=== PATIENT | female | born 1970 | race Caucasian/White ===

== ENCOUNTER 2023-09-30 06:44 | Emergency (ER) | payer OTHER, SELFPAY ==
[2023-09-30 06:49] VITALS: BP 187/86
[2023-09-30 07:09] VITALS: BMI 41.1
[2023-09-30] MEDS: DUONEB 3 ML INH (07:30)
--- NOTE | 2023-09-30 07:30 | ED.GENMED ---
History of Present Illness
General
Chief Complaint: Breathing Problem
Source: patient
Exam Limitations: none
Time Seen by Provider: 09/30/23 07:03
Nursing documentation reviewed up to this point in time: agreed with
Travel History
Have you had any contact with someone who has COVID-19?: No
Do you have any symptoms of coronavirus? Fever > 100 degrees, chills, cough, shortness of breath, sore throat, loss of taste or smell, muscle aches, or headache?: No
History of Present Illness
History of Present Illness:
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 She claims that she has had significant
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 She has had worsening dyspnea on exertion. Denies current chest pain does have ongoing shortness of breath and tightness to the right side. Denies nausea vomiting fevers.
Past History
Past History
ED Past Medical History: NIDDM
ED Past Surgical History: Negative Cardiac
Social History
Tobacco: Non-smoker
Alcohol: None
Drug: None
Personal:
Living: with family
Employment: Employed
Family History
Family History: Other (Noncontributory)
Review of Systems
Review of Systems
Allergies reviewed?: Yes
All Other Systems: ROS reviewed and negative except as documented in HPI and ROS
Phy Exam
Physical Exam
Physical Exam:
GENERAL: Alert , in no apparent distress
EYE: pupils equal and reactive
NECK: Supple, no significant adenopathy.
ENT: o/p clr, mmm.
CARDIAC: Regular rate and rhythm .
LUNGS: Clear breath sounds bilaterally, no acute respiratory distress, no wheezes/rales/rhonchi
ABDOMEN: Soft, without focal tenderness, no r/g, no cvat
NEUROLOGICAL: Alert and oriented, no focal neuro deficits
SKIN: Warm and dry, skin intact.
MUSCULOSKELETAL: No edema, well perfused.
PSYCH: Normal and appropriate interaction.
Scores
Heart Failure Risk
Heart Failure Risk Score: Not Applicable
Course
Orders/Labs/Results
Orders:
Orders
09/30/23 07:14
Ipratropium/Albuterol Sulfate [Duoneb] 3 ml INH R NOW STA
09/30/23 07:15
Electrocardiogram (*1) Stat
Reason for Study: Other
Other Reason for Exam: pneumonia
CT Chest Pe Study Urgent
Comment:
Reason For Exam: R CP, hxChurg maria e, hx left lung infarct
EKG- Treatment ONCE
09/30/23 07:26
Complete Blood Count/With Diff Urgent
Comprehensive Metabolic Panel Urgent
NT-proBNP Urgent
Troponin I Urgent
09/30/23 10:16
Dexamethasone Sod Phosphate [Decadron] 10 mg IV NOW STA
Abnormal Lab Results
09/30/23
07:26
Absolute Lymphs (auto) 1.1 L 10^3/uL
(1.2-3.4)
Lymphocytes % 17.7 L %
(20.5-51.1)
Glucose 238 H mg/dl
(70-99)
AST 39 H U/L
(14-36)
ALT 61 H U/L
(0-35)
Total Protein 8.3 H g/dl
(6.3-8.2)
09/30/23 07:26
09/30/23 07:26
Vital Signs
Initial and Last Documented VS:
Initial Vital Signs
Temp Pulse Resp BP Pulse Ox
98.2 F 86 20 187/86 96
09/30/23 06:49 09/30/23 06:49 09/30/23 06:49 09/30/23 06:49 09/30/23 06:49
Last Documented Vital Signs
Temp Pulse Resp BP Pulse Ox
98.2 F 86 20 187/86 96
09/30/23 06:49 09/30/23 06:49 09/30/23 06:49 09/30/23 06:49 09/30/23 06:49
MDM/Problems Addressed
MDM/Problems Addressed:
53-year-old female presenting to the emergency today with concerns of right-sided chest tightness worsening over the past 2 or so. [place] very short of breath last night. 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
pulmonary infarcts and decreased left lung capacity. She follows with [facility]. Upon arrival here vital signs are normal other than the elevated blood pressure. O2 sats in the high 90s. Patient is not visibly dyspneic speaking in full
sentences. Lungs are clear on exam. Due to her condition that causes vascular inflammation and potential infarcts plan to do angiogram for further assessment.
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 Likely explaining patient's symptoms. Case was discussed with patient's primary lung team at [facility]. They are recommending ongoing steroids until follow-up on Tuesday which is 3 days
from today.
*Critical Care Note
Total Time (30-74mins, 75-104mins- exclusive of procedures): Not Applicable
ED Attending Note
-
Portions of this chart may have been created with voice recognition software.� Occasional wrong word or��sound alike� substitutions may have occurred due to the inherent limitations of voice recognition software.
Discharge Plan
Departure
Patient Disposition: Home (Routine Discharge)
Date of Disposition: 09/30/23
Time of Disposition: 13:06
Patient with high blood pressure during this ER visit?: No
Condition: Good
Covid-19: Not Applicable
Discharge Problem:
Eosinophilic granuloma of lung
Instructions: Shortness of Breath (Dyspnea) (DC)
Prescriptions:
New
prednisone 20 mg tablet
40 mg PO DAILY 4 Days Qty: 8 0RF
No Action
fexofenadine [Leena] 180 mg Tablet
180 mg PO QPM
albuterol sulfate 90 mcg/actuation Hfa Aerosol Inhaler
2 puff INHALATION R Q4HPRN PRN (Reason: sob)
metformin 500 mg Tablet Extended Release 24 Hr
500 mg PO QPM
carboxymethylcellulose sodium [Refresh] 1 % Drops, Liquid Gel
2 drp BOTH EYES BID PRN (Reason: dry eyes)
cholecalciferol (vitamin D3) 50 mcg (2,000 unit) Tablet
50 mcg PO QPM
Taltz Autoinjector 80 mg/mL Auto-Injector
80 mg SC Q3W
ibuprofen-acetaminophen [Advil Dual Action] 125-250 mg Tablet
2 tab PO BIDPRN PRN (Reason: mild pain)
Referrals:
Pasquale Moraes, [Family Provider] -
Activity Restrictions/Additional Instructions:
You came to the emergency department today with concerns of shortness of breath and ongoing symptoms. Here you were found to have some findings consistent with your chronic condition. Please take prednisone 40 mg once daily for the next 4 days and
follow-up closely with your pulmonary doctor.
Interventions
Interventions:
*Risk Screen - Suicide Last Done: 09/30/23 06:49
*General Assessment Last Done: 09/30/23 07:13
*Neglect/Abuse Screening Last Done: 09/30/23 06:49
ED- Fall Risk Assessment Last Done: 09/30/23 07:13
*ED COVID-19 Vaccine History Last Done: 09/30/23 06:49
ED- Cardiac Assessment Last Done: 09/30/23 07:13
ED- Pulmonary Assessment Last Done: 09/30/23 07:13
Discharge Date and Time
Print Language: ARABIC
[2023-09-30 07:36] LABS: % Basophils 0.7 % (0-2); % Eosinophils 3.6 % (0-6); % Immature Granulocytes 0.5 % (0-0.5); % Lymphocytes 17.7 % (20.5-51.1); % Monocytes 5.4 % (1.7-9.3); % Neutrophils 72.1 % (42.2-75.2); Absolute Eosinophils 0.2 10^3/uL (0-0.7); Absolute Lymphocytes 1.1 10^3/uL (1.2-3.4); Absolute Monocytes 0.3 10^3/uL (0.1-0.6); Absolute Neutrophils 4.4 10^3/uL (1.4-6.5); Hematocrit 37.4 % (37.0-47.0); Hemoglobin 13.1 g/dL (12.0-16.0); Mean Corpuscular Hgb 30.5 pg (27.0-31.0); Mean Platelet Volume 9.4 fL (7.4-10.4); Nucleated Red Blood Cells % 0 %; Platelet Count 224 10^3/uL (130-400); Red Cell Dist. Width 13.3 % (11.5-14.5); White Blood Cell Count 6.2 10^3/uL (4.8-10.8)
[2023-09-30 07:54] LABS: ALT (SGPT) 61 U/L (0-35); AST (SGOT) 39 U/L (14-36); Albumin 4.8 g/dl (3.5-5.0); Alkaline Phosphatase 93 U/L (38-126); Blood Urea Nitrogen 13 mg/dl (7-17); Calcium 9.8 mg/dl (8.4-10.2); Carbon Dioxide 27 mmol/L (22-30); Chloride 103 mmol/L (98-107); Estimated Creatinine Clearance 120 ml/min; Glucose 238 mg/dl (70-99); Potassium 4.4 mmol/L (3.5-5.1); Sodium 137 mmol/L (135-145); Total Bilirubin 0.7 mg/dl (0.2-1.3); eGFR > 60.00
[2023-09-30 07:55] LABS: Total Protein 8.3 g/dl (6.3-8.2)
[2023-09-30 08:04] LABS: NT-proBNP < 20.0 pg/ml; Troponin I < 0.012 ng/ml
[2023-09-30] MEDS: DECADRON 10 MG IV (10:45)
[2023-09-30 14:19] VITALS: BP 136/74
== END 2023-09-30 14:30 | disposition home or self-care (01) ==
LOC: EMR 06:44
PROVIDERS: Physician Assistant; EMERGENCY PHYSICIAN Emergency Medicine; FAMILY PHYSICIAN Family Medicine
DX: J84.10 Pulmonary fibrosis, unspecified (principal); M30.1 Polyarteritis with lung involvement [Churg-Strauss]; Z86.711 Personal history of pulmonary embolism
CPT/HCPCS: 99285; 96374; 94640; 71275; 80053; 83880; 84484; 85025; Q9967

== ENCOUNTER → 2023-10-31 15:54 | Outpatient (REF) | payer OTHER, SELFPAY | LOC: RAD 15:54 | PROVIDERS: ATTENDING PHYSICIAN Nurse Practitioner Adult Health; FAMILY PHYSICIAN Family Medicine; REFERRING PHYSICIAN Emergency Medicine | DX: J45.909 Unspecified asthma, uncomplicated (principal); J84.89 Other specified interstitial pulmonary diseases | CPT/HCPCS: 71250 ==

== ENCOUNTER → 2023-12-30 08:35 | Outpatient (REF) | payer OTHER, SELFPAY | LOC: HWRAD 08:35 | PROVIDERS: ATTENDING PHYSICIAN Internal Medicine Pulmonary Disease; FAMILY PHYSICIAN Family Medicine | DX: R91.1 Solitary pulmonary nodule (principal) | CPT/HCPCS: 71250 ==

== ENCOUNTER → 2024-01-17 13:11 | Outpatient (REF) | payer OTHER, SELFPAY | LOC: HWRAD 13:11 | PROVIDERS: ATTENDING PHYSICIAN Nurse Practitioner Adult Health | DX: J45.909 Unspecified asthma, uncomplicated (principal); J32.9 Chronic sinusitis, unspecified | CPT/HCPCS: 77080 ==

== ENCOUNTER 2024-01-17 18:08 | Emergency (ER) | payer OTHER, SELFPAY ==
[2024-01-17 18:12] VITALS: BP 191/121
[2024-01-17 19:20] VITALS: BP 198/74
[2024-01-17 19:23] VITALS: BMI 40.0
--- NOTE | 2024-01-17 19:36 | ED.GENMED ---
History of Present Illness
General
Chief Complaint: Heart Rate Problem
Time Seen by Provider: 01/17/24 19:34
History of Present Illness
History of Present Illness:
HPI: Patient presents with increasing palpitations. She describes her heart as having an extra beat and then pausing. She has a history of Churg-Maria E and had been admitted remission for about 10 years. She is noted [facility]. She has no
significant shortness of breath. She called her doctor's [facility] who told her to come in here for further evaluation. Patient has been taking Nucala.
EXAM:
GENERAL: Well appearing in no distress
HEENT: Moist oral mucosa
CARDIOVASCULAR: No murmurs, normal heart rate, regular rhythm, No chest wall tenderness
PULMONARY: No respiratory distress, breath sounds are clear and equal
ABDOMEN: Soft with no peritoneal signs, no tenderness
NEUROLOGIC: Excellent strength all extremities, no coordination deficits
PSYCHIATRIC: Appropriate mental status, normal insight and judgement
EXTREMITIES: Nontender, no edema, moves all extremities equally
SKIN: No rash, no lesions
TIME OF INITIAL ENCOUNTER: 7:40 PM
NUMBER AND COMPLEXITY OF PROBLEMS ADDRESSED AT THE ENCOUNTER
� Chronic conditions affecting care: She has history of Churg-Maria E, prediabetes, iron deficiency anemia
� Acute Exacerbation and/or Progression of Chronic Illness: This is an acute problem
� Differential Diagnosis includes: Exacerbation/progression of Churg-Maria E, electrolyte abnormality, dysrhythmia, ectopy
AMOUNT AND/OR COMPLEXITY OF DATA TO BE REVIEWED AND ANALYZED
� I performed an independent evaluation of and my interpretation is:
EKG: Sinus 106, normal axis
CT:
X-rays:
Laboratory Studies: CBC normal, electrolytes unremarkable however the glucose is 329, TSH is normal
Other:
� Review of other/old records: Patient's blood sugar in September was 238
� Clinical information was obtained by an independent historian: I spoke to at bedside
� Prescriptions/Medications Considered but not given: Given the symptomatic PACs/PVCs considered beta-lacy however given the patient's long history we will hold off on beta-lacy
� Further testing considered but not performed:
RISK OF COMPLICATIONS AND/OR MORBIDITY OR MORTALITY OF PATIENT MANAGEMENT
� Social determinants of health affecting care: Lives at home
� Discussion with other providers:
� Escalation of care including admission/observation vs risk of discharge considered: PVCs and PACs were occasionally noted on cardiac monitoring occurring once every 30 to 60 seconds or so. She does sense these. No clear
contraindication for beta-lacy. Will start low-dose beta-lacy. I informed the patient of the worsening glucose levels. She is only taking 500 mg of metformin�I encouraged her to increase this dosing and to follow-up PMD and with [facility].
Past History
Past History
ED Past Medical History: NIDDM
ED Past Surgical History: Negative Cardiac
Social History
Tobacco: Non-smoker
Alcohol: None
Drug: None
Personal:
Living: with family
Employment: Employed
Family History
Family History: Other (Noncontributory)
Phy Exam
Physical Exam
Physical Exam:
See HPI
Course
Orders/Labs/Results
Orders:
Orders
01/17/24 18:15
Electrocardiogram (*1) Urgent
Reason for Study: Palpitations
EKG- Treatment ONCE
01/17/24 19:34
CMP [Comprehensive Metabolic Panel] Urgent
Complete Blood Count/With Diff Urgent
TSH Reflex To Free T4 Urgent
Comment: ADD ON
01/17/24 19:36
Add On- LAB Urgent
Tests Added?: tsh reflex fT4
Abnormal Lab Results
01/17/24
19:34
Abs Immat Gran (auto) 0.1 H 10^3/uL
(0-0.05)
Immature Gran % 0.7 H %
(0-0.5)
Sodium 134 L mmol/L
(135-145)
Chloride 97 L mmol/L
(98-107)
Glucose 329 H mg/dl
(70-99)
AST 86 H U/L
(14-36)
ALT 137 H U/L
(0-35)
01/17/24 19:34
01/17/24 19:34
Vital Signs
Initial and Last Documented VS:
Initial Vital Signs
Temp Pulse Resp BP Pulse Ox
98.6 F 109 18 191/121 97
01/17/24 18:12 01/17/24 18:12 01/17/24 18:12 01/17/24 18:12 01/17/24 18:12
Last Documented Vital Signs
Temp Pulse Resp BP Pulse Ox
98.6 F 95 22 198/74 96
01/17/24 18:12 01/17/24 19:30 01/17/24 19:30 01/17/24 19:20 01/17/24 19:30
*Critical Care Note
Total Time (30-74mins, 75-104mins- exclusive of procedures): Not Applicable
ED Attending Note
-
Portions of this chart may have been created with voice recognition software.� Occasional wrong word or��sound alike� substitutions may have occurred due to the inherent limitations of voice recognition software.
Discharge Plan
Departure
Prescriptions:
No Action
fexofenadine [Leena] 180 mg Tablet
180 mg PO QPM
albuterol sulfate 90 mcg/actuation Hfa Aerosol Inhaler
2 puff INHALATION R Q4HPRN PRN (Reason: sob)
metformin 500 mg Tablet Extended Release 24 Hr
500 mg PO QPM
carboxymethylcellulose sodium [Refresh] 1 % Drops, Liquid Gel
2 drp BOTH EYES BID PRN (Reason: dry eyes)
cholecalciferol (vitamin D3) 50 mcg (2,000 unit) Tablet
50 mcg PO QPM
Taltz Autoinjector 80 mg/mL Auto-Injector
80 mg SC Q3W
ibuprofen-acetaminophen [Advil Dual Action] 125-250 mg Tablet
2 tab PO BIDPRN PRN (Reason: mild pain)
prednisone 20 mg tablet
40 mg PO DAILY 4 Days Qty: 8 0RF
Referrals:
Liban Gan CRNP [Family Provider] -
Interventions
Interventions:
*Risk Screen - Suicide Last Done: 01/17/24 18:12
*General Assessment Last Done: 01/17/24 18:12
*Neglect/Abuse Screening Last Done: 01/17/24 18:12
ED- Fall Risk Assessment Last Done: 01/17/24 19:23
ED- Cardiac Assessment Last Done: 01/17/24 19:23
ED- Pulmonary Assessment Last Done: 01/17/24 19:23
Discharge Date and Time
Print Language: TELUGU
[2024-01-17 19:45] LABS: % Basophils 0.5 % (0-2); % Eosinophils 0.8 % (0-6); % Immature Granulocytes 0.7 % (0-0.5); % Lymphocytes 24.6 % (20.5-51.1); % Monocytes 6.2 % (1.7-9.3); % Neutrophils 67.2 % (42.2-75.2); Absolute Eosinophils 0.1 10^3/uL (0-0.7); Absolute Immature Granulocytes 0.1 10^3/uL (0-0.05); Absolute Lymphocytes 2.1 10^3/uL (1.2-3.4); Absolute Monocytes 0.5 10^3/uL (0.1-0.6); Absolute Neutrophils 5.7 10^3/uL (1.4-6.5); Hematocrit 40.7 % (37.0-47.0); Hemoglobin 13.9 g/dL (12.0-16.0); Mean Corp Hgb Conc. 34.2 g/dL (33.0-37.0); Mean Corpuscular Hgb 30.8 pg (27.0-31.0); Mean Platelet Volume 10.1 fL (7.4-10.4); Nucleated Red Blood Cells % 0 %; Platelet Count 234 10^3/uL (130-400); Red Blood Cell Count 4.52 10^6/uL (4.20-5.40); Red Cell Dist. Width 13.5 % (11.5-14.5); White Blood Cell Count 8.5 10^3/uL (4.8-10.8)
[2024-01-17 20:00] VITALS: BP 185/92
[2024-01-17 20:12] LABS: ALT (SGPT) 137 U/L (0-35); AST (SGOT) 86 U/L (14-36); Albumin 4.4 g/dl (3.5-5.0); Alkaline Phosphatase 114 U/L (38-126); Blood Urea Nitrogen 14 mg/dl (7-17); Calcium 9.9 mg/dl (8.4-10.2); Carbon Dioxide 28 mmol/L (22-30); Chloride 97 mmol/L (98-107); Estimated Creatinine Clearance 101 ml/min; Glucose 329 mg/dl (70-99); Potassium 3.8 mmol/L (3.5-5.1); Sodium 134 mmol/L (135-145); Total Bilirubin 0.9 mg/dl (0.2-1.3); Total Protein 7.1 g/dl (6.3-8.2); eGFR > 60.00
[2024-01-17 20:43] LABS: TSH Reflex To Free T4 1.45 uIU/ml (0.47-4.68)
--- NOTE | 2024-01-17 20:49 | EDRN ---
Went over blood work with patient and , resting comfortably at this time.
[2024-01-17 21:00] VITALS: BP 163/73
== END 2024-01-17 22:05 | disposition home or self-care (01) ==
LOC: EMR 18:08
PROVIDERS: Emergency Medicine; EMERGENCY PHYSICIAN Emergency Medicine; FAMILY PHYSICIAN Nurse Practitioner Adult Health; REFERRING PHYSICIAN Internal Medicine Pulmonary Disease
DX: R00.2 Palpitations (principal); E11.9 Type 2 diabetes mellitus without complications
CPT/HCPCS: 99284; 80053; 84443; 85025; 93005

== ENCOUNTER → 2024-03-28 16:02 | Outpatient (REF) | payer OTHER, SELFPAY | LOC: HWRAD 16:02 | PROVIDERS: ATTENDING PHYSICIAN Nurse Practitioner Adult Health; FAMILY PHYSICIAN Physician Assistant Medical | DX: J45.901 Unspecified asthma with (acute) exacerbation (principal); J45.909 Unspecified asthma, uncomplicated; J32.9 Chronic sinusitis, unspecified | CPT/HCPCS: 71250 ==

== ENCOUNTER → 2024-05-07 13:20 | Outpatient (REF) | payer OTHER, SELFPAY | LOC: RAD 13:20 | PROVIDERS: ATTENDING PHYSICIAN Nurse Practitioner Adult Health; FAMILY PHYSICIAN Physician Assistant Medical | DX: J45.901 Unspecified asthma with (acute) exacerbation (principal); B47.9 Mycetoma, unspecified | CPT/HCPCS: 71250 ==

== ENCOUNTER 2024-08-03 11:02 | Emergency (ER) | payer OTHER, SELFPAY ==
[2024-08-03 11:07] VITALS: BP 159/102
[2024-08-03 11:35] LABS: % Basophils 0.5 % (0-2); % Eosinophils 0.2 % (0-6); % Immature Granulocytes 0.6 % (0-0.5); % Lymphocytes 14.6 % (20.5-51.1); % Monocytes 6.7 % (1.7-9.3); % Neutrophils 77.4 % (42.2-75.2); Absolute Basophils 0.1 10^3/uL (0-0.2); Absolute Immature Granulocytes 0.1 10^3/uL (0-0.05); Absolute Lymphocytes 1.9 10^3/uL (1.2-3.4); Absolute Monocytes 0.9 10^3/uL (0.1-0.6); Absolute Neutrophils 10.2 10^3/uL (1.4-6.5); Hematocrit 40.3 % (37.0-47.0); Hemoglobin 13.3 g/dL (12.0-16.0); Mean Corpuscular Hgb 29.6 pg (27.0-31.0); Mean Corpuscular Volume 89.8 fL (81.0-99.0); Nucleated Red Blood Cells % 0 %; Platelet Count 342 10^3/uL (130-400); Red Blood Cell Count 4.49 10^6/uL (4.20-5.40); Red Cell Dist. Width 12.4 % (11.5-14.5); White Blood Cell Count 13.1 10^3/uL (4.8-10.8)
[2024-08-03 12:19] LABS: ALT (SGPT) 21 U/L (0-35); AST (SGOT) 36 U/L (14-36); Albumin 4.8 g/dl (3.5-5.0); Alkaline Phosphatase 135 U/L (38-126); Blood Urea Nitrogen 6 mg/dl (7-17); Calcium 9.8 mg/dl (8.4-10.2); Carbon Dioxide 27 mmol/L (22-30); Chloride 98 mmol/L (98-107); Glucose 140 mg/dl (70-99); Potassium 4.4 mmol/L (3.5-5.1); Sodium 138 mmol/L (135-145); Total Protein 8.1 g/dl (6.3-8.2); eGFR > 60.00
[2024-08-03 13:20] VITALS: BP 127/73
--- NOTE | 2024-08-03 15:30 | ED.GENMED ---
History of Present Illness
<Katelin Beach NP - Last Filed: 08/03/24 23:24>
General
Chief Complaint: Breathing Problem
Source: patient
Exam Limitations: none
Time Seen by Provider: 08/03/24 15:03
Nursing documentation reviewed up to this point in time: agreed with
History of Present Illness
History of Present Illness:
Patient to ED with complaint of right sided chest pain, squeezing and burning sensation. She reports a history of churg daniella syndrome. SHe has a known right lung nodue and follows with dr. Bass at [facility]. States she had a lung biopsy
(benign) and CT this past fall. Currently she is being treated for a suspected pulmonary fungal infection. SHe reports worsening cough x 4 weeks. SHe was seen by PCP last week for this. SHe states she was recently placed on amoxicillin and cipro
for UTI and PCP wanted to hold off on futher antibiotics. SHe called PCP last night to report worsening cough. SHe was pescribed a zpack, she has had 1 dose. COugh is dry. No fever/chills. States today while at work she had sudden onset of new
sypmptoms: right sided chest pain that feels also like squeezing and burning. Hurts to breathe deep. Brought to ED by spouse for eval.
Past History
<Katelin Beach NP - Last Filed: 08/03/24 23:24>
Past History
ED Past Medical History: NIDDM and Other (Churg daniella syndrome, Psoriactic arthritis, Psoriasis, elevated HgA1c due to shelter steroid use. )
ED Past Surgical History: Negative Cardiac
Social History
Tobacco: Non-smoker
Alcohol: None
Drug: None
Personal:
Living: with family
Employment: Employed
Family History
Family History: Other (Noncontributory)
Review of Systems
<Katelin Beach NP - Last Filed: 02/21/25 23:24>
Review of Systems
Allergies reviewed?: Yes
All Other Systems: ROS reviewed and negative except as documented in HPI and ROS
Constitutional: Reports weight loss (22lbs x 5 weeks)
EENT: Reports no symptoms
Respiratory: Reports cough
Cardiac: Reports chest pain (Right sided chest pain, burning, squeezing.)
ABD/GI: Reports diarrhea (10 days)
: Reports no symptoms
Musculoskeletal: Reports no symptoms
Skin: Reports no symptoms
Neurological: Reports no symptoms
Psychiatric: Reports no symptoms
Phy Exam
<Katelin Beach NP - Last Filed: 08/03/24 23:24>
General Physical Exam
General Presentation: mild distress
General age: appears stated age
General Skin: warm and dry
General Habitus: normal
General Mental: alert
Cardiovascular Exam
Cardiovascular Exam: regular rate/rhythm and no edema
Pulmonary Exam
Pulmonary Exam: lungs clear and no respiratory distress
Gastrointestinal Exam
Gastrointestinal Exam: normal bowel sounds, non tender, soft and no organomegaly
Musculoskeletal Exam
Musculoskeletal Exam: full ROM and neuro vasc intact
Skin Exam
Skin Exam: normal color and warm/dry
Psychiatric Exam
Psychiatric Exam: normal mood/affect
Scores
<Katelin Beach [employer] - Last Filed: 08/03/24 23:24>
Heart Failure Risk
Heart Failure Risk Score: Not Applicable
Course
<Katelin Beach NP - Last Filed: 08/03/24 23:24>
Orders/Labs/Results
Orders:
Orders
08/03/24 11:12
Electrocardiogram (*1) Urgent
Reason for Study: Shortness of Breath
EKG- Treatment ONCE
CXR2 [CR Chest - 2 Views ] Urgent
Comment:
Reason For Exam: sob
08/03/24 11:23
Complete Blood Count/With Diff Urgent
Comprehensive Metabolic Panel Urgent
08/03/24 15:30
CT Chest PE Study Urgent
Comment:
Reason For Exam: right chest pain, dyspnea
08/03/24 17:05
Troponin I Urgent
Abnormal Lab Results
08/03/24
11:23
WBC 13.1 H 10^3/uL
(4.8-10.8)
Abs Immat Gran (auto) 0.1 H 10^3/uL
(0-0.05)
Absolute Neuts (auto) 10.2 H 10^3/uL
(1.4-6.5)
Absolute Monos (auto) 0.9 H 10^3/uL
(0.1-0.6)
Immature Gran % 0.6 H %
(0-0.5)
Neutrophils % 77.4 H %
(42.2-75.2)
Lymphocytes % 14.6 L %
(20.5-51.1)
BUN 6 L mg/dl
(7-17)
Glucose 140 H mg/dl
(70-99)
Alkaline Phosphatase 135 H U/L
(38-126)
08/03/24 11:23
08/03/24 11:23
Vital Signs
Initial and Last Documented VS:
Initial Vital Signs
Temp Pulse Resp BP Pulse Ox
98.7 F 102 16 159/102 98
08/03/24 11:07 08/03/24 11:07 08/03/24 11:07 08/03/24 11:07 08/03/24 11:07
Last Documented Vital Signs
Temp Pulse Resp BP Pulse Ox
98.7 F 109 16 158/88 93
08/03/24 11:07 08/03/24 18:12 08/03/24 18:12 08/03/24 18:12 08/03/24 18:12
<Emile Bentley MD - Last Filed: 08/03/24 16:47>
Orders/Labs/Results
Orders:
Orders
08/03/24 11:12
Electrocardiogram (*1) Urgent
Reason for Study: Shortness of Breath
EKG- Treatment ONCE
CXR2 [CR Chest - 2 Views ] Urgent
Comment:
Reason For Exam: sob
08/03/24 11:23
Complete Blood Count/With Diff Urgent
Comprehensive Metabolic Panel Urgent
08/03/24 15:30
CT Chest PE Study Urgent
Comment:
Reason For Exam: right chest pain, dyspnea
08/03/24 17:05
Troponin I Urgent
Abnormal Lab Results
08/03/24
11:23
WBC 13.1 H 10^3/uL
(4.8-10.8)
Abs Immat Gran (auto) 0.1 H 10^3/uL
(0-0.05)
Absolute Neuts (auto) 10.2 H 10^3/uL
(1.4-6.5)
Absolute Monos (auto) 0.9 H 10^3/uL
(0.1-0.6)
Immature Gran % 0.6 H %
(0-0.5)
Neutrophils % 77.4 H %
(42.2-75.2)
Lymphocytes % 14.6 L %
(20.5-51.1)
BUN 6 L mg/dl
(7-17)
Glucose 140 H mg/dl
(70-99)
Alkaline Phosphatase 135 H U/L
(38-126)
08/03/24 11:23
08/03/24 11:23
Vital Signs
Initial and Last Documented VS:
Initial Vital Signs
Temp Pulse Resp BP Pulse Ox
98.7 F 102 16 159/102 98
08/03/24 11:07 08/03/24 11:07 08/03/24 11:07 08/03/24 11:07 08/03/24 11:07
Last Documented Vital Signs
Temp Pulse Resp BP Pulse Ox
98.7 F 109 16 158/88 93
08/03/24 11:07 08/03/24 18:12 08/03/24 18:12 08/03/24 18:12 08/03/24 18:12
<Katelin Beach NP - Last Filed: 08/03/24 23:24>
*Critical Care Note
Total Time (30-74mins, 75-104mins- exclusive of procedures): Not Applicable
<Katelin Beach NP - Last Filed: 08/03/24 23:24>
Update Note
Update Note:
CXR reveals increase in size of right lung mass, high level suspicion for pulmonary malignancy. Discussesd findings with her. WIll CT. PUlse ox 98% RA, no respiratory distress noted.
NO evidence of PE. COnfirmation of enlargement of right lung mass - 'airspace consolidation due to Churg Maria E syndrome vs lung CA. Discussed this finding with her. SHe remains awake and alert, in no distress. PUlse ox 98% RA, no respiratory
distress. Admission vs discharge discussed wtih her and she is comfortable tiwth discharge. Will plan on discharge home and she will follow up with her pocket assembler in AM. SHe was given a copy on disc of her chest XRay and CT. SHe was ginve
instructions on s/s to return to eD and she is agreeable to plan. Case discussed iwmonica bentley who also evaluated this patient.
ED Attending Note
<Katelin Beach [employer] - Last Filed: 08/03/24 23:24>
-
Portions of this chart may have been created with voice recognition software.� Occasional wrong word or��sound alike� substitutions may have occurred due to the inherent limitations of voice recognition software.
<Emile Bentley MD - Last Filed: 08/03/24 16:47>
ED Attending Note
Patient seen and examined by attending physician: Yes
ED Attending Note:
I have seen and evaluated the patient with a [id number] encounter. I have spoken to the advance practicer provider and involved in the medical history, the physical exam, medical decision making.
Evaluation and management service: agree unless noted differently below.
Results interpretation: agree unless noted differently below.
Focused HPI: 54-year-old female with a past medical history of Churg-Maria E syndrome, asthma, IBS, diabetes, psoriasis who presents to the emergency department for evaluation of chest pain. Patient reports that symptoms are chronic related to her
Churg-Maria E but became significantly worse today. She reports that while she was at work prior to arrival she felt 'pain inside my lung' on the right. She says she has associated shortness of breath and 'rattling' when she breathes. She says
that she has had issues with her right lung before she says that she was diagnosed with a granuloma and has been on antifungals for the past few months is scheduled for follow-up in September.
Physical exam: Awake alert no distress. Breath sounds somewhat diminished on the right. Hypertensive, tachycardic, normal pulse ox, normal respiratory rate. No cardiac rubs gallops or murmurs appreciated.
Medical Decision Makin-year-old female presents for evaluation of right-sided chest pain and shortness of breath in the setting of known Churg-Maria E disease and prior diagnosis of granuloma on the right. Vitals and exam as above. She has a
leukocytosis to 13.1. CMP no clinically significant abnormalities. Chest x-ray showed 5 cm pulmonary mass increased in size compared to prior. There was concern that this could be a pulmonary malignancy. Given abrupt change in pain however we
will check CT chest to rule out PE and to better evaluate this finding.
Discharge Plan
Departure
Patient Disposition: Home (Routine Discharge)
Date of Disposition: 08/03/24
Time of Disposition: 18:12
Patient with high blood pressure during this ER visit?: No
Condition: Good
Covid-19: Not Applicable
Discharge Problem:
Chest pain, Dyspnea
Instructions: Shortness of Breath (Dyspnea) (DC), Chest Pain (DC)
Prescriptions:
No Action
fexofenadine [Leena] 180 mg Tablet
180 mg PO QPM
albuterol sulfate 90 mcg/actuation Hfa Aerosol Inhaler
2 puff INHALATION R Q4HPRN PRN (Reason: sob)
metformin 500 mg Tablet Extended Release 24 Hr
500 mg PO QPM
carboxymethylcellulose sodium [Refresh] 1 % Drops, Liquid Gel
2 drp BOTH EYES BID PRN (Reason: dry eyes)
cholecalciferol (vitamin D3) 50 mcg (2,000 unit) Tablet
50 mcg PO QPM
Taltz Autoinjector 80 mg/mL Auto-Injector
80 mg SC Q3W
ibuprofen-acetaminophen [Advil Dual Action] 125-250 mg Tablet
2 tab PO BIDPRN PRN (Reason: mild pain)
prednisone 20 mg tablet
40 mg PO DAILY 4 Days Qty: 8 0RF
metoprolol succinate [Toprol XL] 25 mg tablet extended release 24 hr
12.5 mg PO DAILY Qty: 14 0RF
Referrals:
Jennifer Evangelista PA-C [Family Provider] -
Activity Restrictions/Additional Instructions:
Follow up with your pocket assembler on Tuesday. Return to the emergency department immediately for any changes in/worsening of your symptoms.
Interventions
Interventions:
*Risk Screen - Suicide Last Done: 08/03/24 11:07
*General Assessment Last Done: 08/03/24 15:31
*Neglect/Abuse Screening Last Done: 08/03/24 11:07
ED- Fall Risk Assessment Last Done: 08/03/24 15:32
*ED COVID-19 Vaccine History Last Done: 08/03/24 15:31
*Nursing Disposition Last Done: 08/03/24 18:33
ED- Cardiac Assessment Last Done: 08/03/24 15:34
ED- Pulmonary Assessment Last Done: 08/03/24 15:34
Discharge Date and Time
Discharge Date/Time: 08/03/24 18:34
Print Language: KYRGYZ
[2024-08-03 15:31] VITALS: BMI 38.3
[2024-08-03 15:34] VITALS: BP 186/87
--- NOTE | 2024-08-03 16:36 | EDRN ---
Dr. Bentley in room w/pt. Pt needs an IV for CT PE study of lung at this time.
[2024-08-03 16:45] VITALS: BP 155/77
--- NOTE | 2024-08-03 17:05 | EDRN ---
Blood drawn and sent for troponin blood test order.
[2024-08-03 17:44] LABS: Troponin I < 0.012 ng/ml
--- NOTE | 2024-08-03 18:04 | EDRN ---
Elle Beach CONSULAR OFFICER in room w/pt at this time.
[2024-08-03 18:12] VITALS: BP 158/88
== END 2024-08-03 18:34 | disposition home or self-care (01) ==
LOC: EMR 11:02
PROVIDERS: Emergency Medicine; EMERGENCY PHYSICIAN Emergency Medicine; FAMILY PHYSICIAN Physician Assistant Medical
DX: R07.89 Other chest pain (principal); E11.9 Type 2 diabetes mellitus without complications
CPT/HCPCS: 99284; 71046; 71275; 80053; 84484; 85025; 93005; Q9967

== ENCOUNTER 2025-02-06 16:02 | Inpatient (IN) | payer OTHER, SELFPAY ==
[2025-02-04 21:06] VITALS: BP 186/87
[2025-02-04 22:03] VITALS: BP 129/81
[2025-02-04] MEDS: TORADOL 30 MG IV (22:14)
[2025-02-04 22:23] LABS: Hematocrit 35.9 % (37.0-47.0); Hemoglobin 12.1 g/dL (12.0-16.0); Mean Corp Hgb Conc. 33.7 g/dL (33.0-37.0); Mean Corpuscular Volume 88.9 fL (81.0-99.0); Nucleated Red Blood Cells % 0 %; Platelet Count 305 10^3/uL (130-400); Red Cell Dist. Width 14.4 % (11.5-14.5)
[2025-02-04 22:36] LABS: ALT (SGPT) 43 U/L (0-35); AST (SGOT) 34 U/L (14-36); Albumin 4.8 g/dl (3.5-5.0); Alkaline Phosphatase 99 U/L (38-126); Blood Urea Nitrogen 20 mg/dl (7-17); Calcium 9.5 mg/dl (8.4-10.2); Carbon Dioxide 23 mmol/L (22-30); Chloride 105 mmol/L (98-107); Glucose 287 mg/dl (70-99); Potassium 4.3 mmol/L (3.5-5.1); Sodium 136 mmol/L (135-145); Total Protein 7.6 g/dl (6.3-8.2); eGFR > 60.00
[2025-02-04 23:13] VITALS: BP 170/80
[2025-02-05] VITALS (10 sets, daily range): BP systolic 132–172; BP diastolic 61–87; BMI 28.7
--- NOTE | 2025-02-05 00:27 | ED.GENMED ---
History of Present Illness
General
Chief Complaint: Back Pain
Source: patient
Exam Limitations: none
Time Seen by Provider: 02/05/25 00:05
Nursing documentation reviewed up to this point in time: agreed with
History of Present Illness
History of Present Illness:
Note:
CHIEF COMPLAINT(S)
Severe pain in the right leg, extending from the middle of the buttock down to the foot, exacerbated after recent medication administration.
HISTORY OF PRESENT ILLNESS
The patient is a 54-year-old female with a significant history of metastatic thyroid cancer mets to the lungs, psoriatic arthritis, who presented with worsening pain in her right leg. This has been going on the past few years but seemed to acutely
worsen the past week. It got to the point that she could not walk. The patient describes the pain as originating from the middle of the buttock and radiating down to the foot, characterized by severe cramping jackie to labor pains. This issue has been
ongoing since her surgery in November, where she was under anesthesia for an unexpectedly extended duration. She follows with [facility] for her cancer and is scheduled to get radioactive iodine therapy. The pain intensified tonight after receiving a
re-initiation dose of an injectable medication, Taltz, with one injection in each leg. The patient reports that within about an hour post-injection, her condition worsened substantially. She currently experiences a dragging sensation in her leg,
difficulty standing without elevating her leg, and is unable to walk without significant assistance. Furthermore, she describes an inability to move effectively in bed due to weakness in both legs, with the right leg being most affected. The patient
denies any back or hip pain, specifying that the discomfort is confined to her leg. She reports a recent episode of a urinary tract infection approximately ten days ago, which has since resolved. Additionally, there is a planned MRI for her leg pain
on February 13. She follows with rheumatology and [facility]. Her current medications include Leena, Metformin, Gabapentin, which was recently increased by her personal injury law specialist, and Tylenol. The increase in Gabapentin dosage has
correlated with a deterioration in her condition over the past four days. She denies urinary or fecal incontinence, genital paresthesias, fevers or chills. Patient does not take a blood thinner. Patient had no trauma to the area, no falls.
PAST MEDICAL AND SURGICAL HISTORY
The patients medical history includes psoriasis and psoriatic arthritis. She has a history of thyroid cancer, which was identified via a CT scan prior to undergoing surgery for the condition in November. During this surgery, the patient developed
significant leg pain that persisted postoperatively.
CHRONIC MEDICAL CONDITIONS SIGNIFICANTLY AFFECTING CARE
Psoriasis, Psoriatic Arthritis, History of Thyroid Cancer.
MEDICATIONS
- Leena
- Metformin
- Gabapentin (recently increased dosage)
- Tylenol
- Recently restarted Taltz (injectable).
PHYSICAL EXAM
General: Alert, no acute distress.
Skin: Warm, dry. No rashes or lesions
Head: Normocephalic, atraumatic.
Neck: Supple, trachea midline.
Eyes, Ears, Nose, Mouth, and Throat: Oral mucosa moist.
Cardiovascular: RRR, no murmurs. Normal peripheral perfusion, No edema.
Respiratory: Respirations are non-labored.
Gastrointestinal: Abdomen nondistended and non-tender to palpation.
Back: Normal range of motion, Normal alignment. No midline bony tenderness to palpation.
Musculoskeletal: Patient able to lift right leg, 5/5 strength. Tenderness to palpation to right posterior thigh, no palpable abnormality. No pain with flexion or extension of the right knee, internal or external rotation of the right hip. With
weight bearing, pain intensifies and she gets cramping and she is unable to walk.
Neurological: Alert and oriented to person, place, time, and situation, No focal neurological deficit observed. Sensation intact. 5/5 strength in lower extremities.
Psychiatric: Cooperative, appropriate mood & affect.
PROBLEM LIST
Acute:
1. Severe right leg pain.
2. Recent exacerbation following Taltz injection.
3. Possible reaction to increased Gabapentin dosage.
Chronic:
1. Psoriasis.
2. Psoriatic arthritis.
3. History of thyroid cancer.
PLAN
1. Administer intravenous Toradol for pain relief and valium for muscle relaxation.
2. Arrange for imaging studies, potential x-ray, to assess causes of leg pain.
3. Monitor patient for improvement post-medication administration.
4. Review upcoming MRI results to evaluate potential nerve involvement.
DIFFERENTIAL DIAGNOSIS
The Differential Diagnosis includes, in no particular order and is not limited to:
1. Sciatica
2. Medication-induced neuropathy
3. Lumbar radiculopathy
4. Inflammatory arthritis flare
5. Peripheral vascular disease
6. Complex regional pain syndrome
7. Spinal stenosis
8. Post-surgical nerve damage
9. Medication side effect (Gabapentin)
10. Deep vein thrombosis
CHART REVIEW
- Reviewed ER physician note from 08/03/2024 patient seen for chest pain
- Reviewed ER physician documentation from 10/18/2021 for similar pain, she received multiple doses of medication and had unremarkable workup patient was able to ambulate at the time upon discharge
MDM/DISPOSITION
The patient is a 54-year-old female with a significant history of metastatic thyroid cancer mets to the lungs, psoriatic arthritis, who presented with worsening pain in her right leg. This has been going on the past few years but seemed to acutely
worsen the past week. There was no known trauma. No fevers or chills. No known IV drug use. No saddle paresthesias, urinary or fecal incontinence. She is currently undergoing treatment for thyroid cancer. She is scheduled to get radioactive iodine.
She tried gabapentin and tylenol which did not help. On exam, she is well appearing, she has good strength in her right lower extremity despite the pain, her sensation is intact, she is still perfusion. She has no pain with internal and external
rotation of the hip and has no pain with ranging the knee. She is tender directly over her thigh. She has a long history of this pain. She is MRI scheduled for the pain February 13. She received Valium, Toradol, and Dilaudid. Reexamination,
recommend ambulate patient, she was able to get out of bed but when she stood up, she cried out in severe pain and was unable to walk or bear weight without falling. She was of Dilaudid and noted improvement in her pain. X-rays unremarkable. No
bony lesion x-ray. Pain. Will admit for intractable pain and ambulatory dysfunction.
Past History
Past History
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 )
ED Past Surgical History: Negative Cardiac
Social History
Tobacco: Non-smoker
Alcohol: None
Drug: None
Personal:
Living: with family
Employment: Employed
Family History
Family History: Other (Noncontributory)
Phy Exam
Physical Exam
Physical Exam:
see hpi
Course
Orders/Labs/Results
Orders:
Orders
02/04/25 22:07
Ketorolac [Toradol] 30 mg .ROUTE .STK-MED ONE
02/04/25 22:13
Ketorolac [Toradol] 30 mg IV NOW STA
02/04/25 22:16
CMP [Comprehensive Metabolic Panel] Urgent
Complete Blood Count/With Diff Urgent
Creatine Phosphokinase Urgent
Comment: ADD ON
02/05/25 00:26
Ketorolac [Toradol] 30 mg IV NOW STA
diazePAM [Valium Injection] 2 mg IM NOW STA
02/05/25 00:28
HYDROmorphone [Dilaudid] 0.5 mg IV NOW STA
02/05/25 00:37
Add On- LAB Urgent
Tests Added?: cpk
02/05/25 00:51
diazePAM [Valium Injection] 2 mg IV NOW STA
02/05/25 01:02
CR Hip - RT w/wo Pel 2-3 Vw* Urgent
Comment:
Reason For Exam: right thigh pain
Include a pelvis x-ray?: Yes
CR Lumbar Spine Comp Min 4 Vw* Urgent
Comment:
Reason For Exam: low back pain
02/05/25 02:51
HYDROmorphone [Dilaudid] 0.5 mg IV NOW STA
02/05/25 02:53
Acetaminophen [Tylenol] 1,000 mg PO NOW STA
Abnormal Lab Results
02/04/25
22:16
RBC 4.04 L 10^6/uL
(4.20-5.40)
Hct 35.9 L %
(37.0-47.0)
Abs Immat Gran (auto) 0.1 H 10^3/uL
(0-0.05)
Absolute Neuts (auto) 8.6 H 10^3/uL
(1.4-6.5)
Absolute Monos (auto) 0.7 H 10^3/uL
(0.1-0.6)
Neutrophils % 80.7 H %
(42.2-75.2)
Lymphocytes % 11.5 L %
(20.5-51.1)
BUN 20 H mg/dl
(7-17)
Glucose 287 H mg/dl
(70-99)
ALT 43 H U/L
(0-35)
02/04/25 22:16
02/04/25 22:16
Vital Signs
Initial and Last Documented VS:
Initial Vital Signs
Temp Pulse Resp BP Pulse Ox
98.0 F 91 16 186/87 98
02/04/25 21:06 02/04/25 21:06 02/04/25 21:06 02/04/25 21:06 02/04/25 21:06
Last Documented Vital Signs
Temp Pulse Resp BP Pulse Ox
98.0 F 84 15 132/61 95
02/04/25 21:06 02/05/25 04:15 02/05/25 04:15 02/05/25 04:00 02/05/25 04:15
*Pulse Oximetry
SaO2: 98
Oxygen Mode of Delivery: Room air
Patient hypoxic: no
*Critical Care Note
Total Time (30-74mins, 75-104mins- exclusive of procedures): Not Applicable
Update Note
Update Note:
2:15 AM--Attempted to ambulate patient, she is able to get out of bed on her own but as soon as she stood up, she was unable to bear weight without severe pain. X-rays unremarkable no evidence of blastic lesion no acute abnormality. Patient
reports that there was not much of a change in her pain. Will give another dose of dilaudid.
ED Attending Note
-
Portions of this chart may have been created with voice recognition software.� Occasional wrong word or��sound alike� substitutions may have occurred due to the inherent limitations of voice recognition software.
Discharge Plan
Departure
Patient Disposition: Admit
Date of Disposition: 02/05/25
Time of Disposition: 03:55
Admit to: Med/Surg
Presentation/result/management discussed w/ accepting MD/DO: Hospitalist
Patient with high blood pressure during this ER visit?: Yes
Condition: Fair
Discharge Problem:
Intractable back pain, Pain in right thigh
Prescriptions:
No Action
fexofenadine [Leena] 180 mg Tablet
180 mg PO QPM
albuterol sulfate 90 mcg/actuation Hfa Aerosol Inhaler
2 puff INHALATION R Q4HPRN PRN (Reason: sob)
metformin 500 mg Tablet Extended Release 24 Hr
500 mg PO QPM
carboxymethylcellulose sodium [Refresh] 1 % Drops, Liquid Gel
2 drp BOTH EYES BID PRN (Reason: dry eyes)
cholecalciferol (vitamin D3) 50 mcg (2,000 unit) Tablet
50 mcg PO QPM
Taltz Autoinjector 80 mg/mL Auto-Injector
80 mg SC Q3W
ibuprofen-acetaminophen [Advil Dual Action] 125-250 mg Tablet
2 tab PO BIDPRN PRN (Reason: mild pain)
prednisone 20 mg tablet
40 mg PO DAILY 4 Days Qty: 8 0RF
metoprolol succinate [Toprol XL] 25 mg tablet extended release 24 hr
12.5 mg PO DAILY Qty: 14 0RF
Referrals:
UNKNOWN - PT DOES,NOT KNOW [Family Provider]
Interventions
Interventions:
*Risk Screen - Suicide Last Done: 02/04/25 21:45
*General Assessment Last Done: 02/04/25 21:45
*Neglect/Abuse Screening Last Done: 02/04/25 21:45
*ED- Fall Risk Assessment Last Done: 02/04/25 21:45
ED-Musculoskeletal Assessment Last Done: 02/04/25 21:45
Discharge Date and Time
Print Language: SALVADOREAN
[2025-02-05] MEDS: DILAUDID 0.5 MG IV ×5 (00:37→15:52)
[2025-02-05] MEDS: VALIUM INJECTION 2 MG IV (00:51)
[2025-02-05] MEDS: TYLENOL 1000 MG PO ×3 (02:57→15:53)
--- NOTE | 2025-02-05 04:50 | HPS.HSE ---
Family Physician
-
Family Physician: NOT KNOW UNKNOWN - PT DOES
Chief Complaint
-
RLE Pain
History of Present Illness
Patient is a 54y F with PMH significant for Churg-Maria E disease, psoriasis / psoriatic arthritis and metastatic papillary thyroid cancer who presents to ED complaining of RLE radicular pain. Patient states that she underwent thyroidectomy in
November of this year for thyroid cancer. Following that surgery she noted RLE radicular pain. This has persisted / progressed since that time. She had taken steroid courses (1 week then 2 weeks) without improvement. She has taken gabapentin and had
dose increased without improvement. She denies any fall, injury, trauma. No pain in the low back / mid back / etc.
Pain is located in the R buttocks and extends down the back of the R leg to the foot. Pain is worse with standing / walking.
Patient was seen by Ortho and an MRI was ordered - this is scheduled for early February.
This evening her pain became more severe and she presented to the ED for further evaluation.
Patient notes that she took 'starter dose' of Taltz earlier this evening (on injection into each thigh). It was about an hour later that increased pain started.
She was on Taltz previously with no issues - but has been off of it now for about one year.
She has no pain in the anterior thigh / at injection site.
No numbness of the RLE. No bowel / bladder incontinence.
Medical History
Past Medical History
Past Medical History: Reports Other
Additional Past Medical History:
Microscopic Polyangiitis / Churg-Maria E
Psoriasis / Psoriatic Arthritis
Metastatic Papillary Thyroid Cancer
History of PE / Pulmonary Infarct
DM-II
Asthma
Endometriosis
Past Surgical History: Reports Other
Additional Past Surgical History:
Thyroidectomy (November 2024)
Lung Biopsy / Wedge Resection (September 2024)
Ex Lap
Spinal Fusion
NEIDA / BSO
Social History
Tobacco: Former Smoker (Quit smoking 15 years ago.)
Alcohol: None
Drug: None
Family History
Family History: Not pertinent
Allergies / Home Medications
Allergies reflects when Allergies were last updated in [employer].
Home Medications with original date entered in [employer]
Allergy/Medication List:
Allergies
Allergy/AdvReac Type Severity Reaction Status Date / Time
Sulfa (Sulfonamide Allergy Intermediate Rash, hives Verified 02/04/25 22:08
Antibiotics)
latex Allergy trouble Verified 02/04/25 22:08
breathing
morphine Allergy Unknown Verified 02/04/25 22:08
oxycodone (From Roxicodone) Allergy Unknown Verified 02/04/25 22:08
cherries Allergy eyes & Uncoded 02/04/25 22:08
throat
swells,
skin itches
enironmental Allergy eyes & Uncoded 02/04/25 22:08
throat
swells,
skin itches
peaches Allergy eyes & Uncoded 02/04/25 22:08
throat
swells,
skin itches
Home Medications
albuterol sulfate 90 mcg/actuation aerosol inhaler 2 puff inhalation R Q4HPRN PRN sob 09/30/23
cholecalciferol (vitamin D3) 50 mcg (2,000 unit) tablet 50 mcg PO QPM Supplement 09/30/23
fexofenadine 180 mg tablet 180 mg PO QPM Allergies 09/30/23
ixekizumab 80 mg/mL subcutaneous auto-injector (Taltz Autoinjector) 80 mg SC Q3W IMMUNILOGIC CONDITION 09/30/23
prednisone 20 mg tablet 40 mg (2 x 20 mg) PO DAILY 4 days #8 tabs 09/30/23
gabapentin 300 mg capsule 300 mg PO TID 02/05/25
levothyroxine 112 mcg tablet 112 mcg PO DAILY 02/05/25
metformin 500 mg tablet,extended release 24 hr 1,000 mg PO BID 02/05/25
Review of Systems
-
History Source: Patient
A 12 point ROS was completed and negative except as noted: Yes
Constitutional: Denies Fever or Chills
Respiratory: Denies Cough or Trouble Breathing
Cardiac: Denies Chest Pain or Palpitations
Abdomen/GI: Denies Abdominal Pain, Nausea, Vomiting or Diarrhea
: Denies Dysuria or Flank Pain
Musculoskeletal: Reports Muscle Pain; Denies Edema
Neurological: Denies Dizzy or Headache
Physical Exam
Vital Signs
Vital Signs
Temp Pulse Resp BP Pulse Ox
98.0 F 91 16 132/61 99
02/04/25 21:06 02/05/25 04:30 02/05/25 04:30 02/05/25 04:00 02/05/25 04:30
Physical Exam
General: Other (54y F in no acute distress.)
HEENT: Moist mucous membranes and PERRLA
Respiratory: Clear; No Wheezes, Rales or Rhonchi
Cardiac: S1/S2 and Regular Rhythm; No Murmur
GI: Soft, Non Tender, Non Distended and Normal Bowel Sounds
Musculoskeletal: No Clubbing, No Cyanosis, No Edema and Other (SLR to about 40 degrees. Pinpoint tenderness over R piriformis area. No lumbar tenderness / spasm.)
Skin: Other (Scattered psoriatic skin changes / plaques with small areas over extremities and larger patches over the lumbar spine / midline.)
Neuro: AO x 3
Laboratory Results
-
02/04/25 22:16
02/04/25 22:16
Laboratory Results
Total Bilirubin 0.7 mg/dl (0.2-1.3) 02/04/25 22:16
AST 34 U/L (14-36) 02/04/25 22:16
ALT 43 U/L (0-35) H 08/25/25 22:16
Alkaline Phosphatase 99 U/L (38-126) 02/04/25 22:16
Impression/Plan
-
A/P: Patient is a 54y F with PMH significant for psoriasis, psoriatic arthritis, MPA and thyroid cancer who presents to ED complaining of RLE pain.
Radicular RLE Pain
- Observe overnight for further evaluation and treatment.
- Pain control, muscle relaxants, supportive care.
- Continue gabapentin.
- PT eval.
- Exam / history seems most c/w piriformis syndrome.
- MRI to rule out HNP / DDD that might be amenable to injection / LESI.
- Follow for clinical changes.
Psoriasis / Psoriatic Arthritis
- Recent flare of skin changes / symptoms.
- Just restarted Taltz after being off of this for a year.
- Given nature of pain (posterior / radicular / etc) - doubt this is related to tonight's injection.
- Follow for response / improvement.
- Follow-up with Rheum as an outpatient.
Metastatic Papillary Thyroid Cancer
Post-Surgical Hypothyroidism
- Diagnosed after excision of granulomatous lung lesion (MPA) in September included a small area of thyroid cancer.
- Subsequently underwent thyroidectomy in November.
- Continue T4 supplementation.
- Follow-up with Oncology as an outpatient.
MPA / Churg-Maria E
Asthma
- Stable. Continue albuterol PRN.
- Continue current prednisone dose (40mg daily).
- Follow-up with Pulm as an outpatient.
DM-II
- Stable. Hold PO medication acutely.
- Follow glucose and cover with SSI as needed.
- Update A1C.
DVT Prophylaxis: SCDs
Code Status: Full
[2025-02-05 06:27] LABS: Hematocrit 34.7 % (37.0-47.0); Hemoglobin 11.7 g/dL (12.0-16.0); Mean Corp Hgb Conc. 33.7 g/dL (33.0-37.0); Mean Corpuscular Volume 89.9 fL (81.0-99.0); Platelet Count 285 10^3/uL (130-400); Red Cell Dist. Width 14.4 % (11.5-14.5)
[2025-02-05] MEDS: SYNTHROID 112 MCG PO (06:30)
[2025-02-05 06:46] LABS: Blood Urea Nitrogen 19 mg/dl (7-17); Calcium 9.3 mg/dl (8.4-10.2); Carbon Dioxide 25 mmol/L (22-30); Chloride 106 mmol/L (98-107); Glucose 263 mg/dl (70-99); Potassium 5.2 mmol/L (3.5-5.1); Sodium 139 mmol/L (135-145); eGFR > 60.00
--- NOTE | 2025-02-05 07:27 | W.PN.HOSP.TC ---
Today's Communication/Plan
-
MRI pelvis and L-spine pending
Titrate pain medications as needed
Assessment / Plan
Assessment / Plan
Physical Exam
General: Other (54y F in no acute distress.)
HEENT: Moist mucous membranes and PERRLA
Respiratory: Clear; No Wheezes, Rales or Rhonchi
Cardiac: S1/S2 and Regular Rhythm; No Murmur
GI: Soft, Non Tender, Non Distended and Normal Bowel Sounds
Musculoskeletal: No Clubbing, No Cyanosis, No Edema and Other (SLR to about 40 degrees. Pinpoint tenderness over R piriformis area. No lumbar tenderness / spasm.)
Skin: Other (Scattered psoriatic skin changes / plaques with small areas over extremities and larger patches over the lumbar spine / midline.)
Neuro: AO x 3
Assessment/Plan
54y F with [facility] significant for Churg-Maria E disease, psoriasis / psoriatic arthritis and metastatic papillary thyroid cancer who presented to [facility] ED complaining of RLE radicular pain. Patient stated that she underwent thyroidectomy in November 2024.
Following that surgery, she noted RLE buttock pain and tenderness, radiating down her right lower extremity. This has persisted / progressed since that time. She had taken steroid courses (1 week then 2 weeks) without improvement. She had taken
gabapentin and had dose increased without improvement. She denied any fall, injury, trauma. No pain in the low back / mid back / etc.
Pain is located in the R buttocks and extends down the back of the R leg to the right foot. Pain is worse with standing / walking and sitting.
Patient was seen by outpatient [facility] and an MRI was ordered - this is scheduled for early February 2025.
Patient's became a whole lot worse, therefore she presented to the emergency room.
Patient notes that she took 'starter dose' of Taltz on 02/04/25 (on injection into each thigh). It was about an hour later that increased pain started.
She was on Taltz previously with no issues - but has been off of it now for about one year.
She has no pain in the anterior thigh / at injection site.
No numbness of the RLE. No bowel / bladder incontinence.
Right buttocks pain and tenderness, going down to right foot, worse with sitting, standing (inability to bear weight)
- Pain control, muscle relaxants (prn Valium), supportive care -- titrate pain medications as needed -- consider changing Toradol to scheduled from PRN
- Continue gabapentin.
- No PT/OT for now until MRI completed (patient's outpatient ortho recommended against PT/OT until MRI is completed)
- MRI L-spine and MRI Pelvis (to look for any pelvic/right buttock lesions) pending
- Ortho consulted: they mentioned that Piriformis syndrome is possible. She has toradol PRN, we may want to change it to schedules. I also think we should add a muscle relaxant, try to work with PT, and push to get the lumbar
MRI done [facility]
Psoriasis / Psoriatic Arthritis
- Recent flare of skin changes / symptoms.
- Just restarted Taltz after being off of this for a year.
- Follow for response / improvement.
- Follow-up with Rheum as an outpatient.
Metastatic Papillary Thyroid Cancer
Post-Surgical Hypothyroidism
- Diagnosed after excision of granulomatous lung lesion (MPA) in September 2024 included a small area of thyroid cancer.
- Subsequently underwent thyroidectomy in November 2024
- Continue T4 supplementation.
- Follow-up with Oncology as an outpatient.
MPA / Churg-Maria E
Asthma
- Patient reported Niko Sanderson was diagnosed in 2009 by a [employer], was having infiltrate on CT Chest imaging, biopsy showed Churg Maria E, had been on steroids and other immunosuppresants, after repeated
treatment and repeat flare-up, went into remission 2013 to 2023, but then returned in 2023, when, due to the fact that infiltrate was not responsive to medications/immunosuppressants, she needed lung lobectomy, after which
tyroid cancer was found in the lung lesion from lobectomy, she then had thyroid surgery to take out nodule, pain started immediately after her thyroid cancer surgery in November 2024
- She has had many, many CT Scans since 2009 for her diagnosis
- I spoke with on-call horse racing manager today, and it is unlikely that patient's leg and buttocks pain is caused by vasculitis/rheum condition
- Stable. Continue albuterol PRN.
- Hold prednisone dose (40mg daily) until confirm that patient is taking it.
- Follow-up with Darci Joseph, Dr. Bass, as an outpatient.
DM-II
- Stable. Hold PO medication acutely.
- Follow glucose and cover with SSI as needed.
DVT Prophylaxis: SCDs. Lovenox.
Code Status: Full
Anticipated Discharge: 24 - 48 hours
Subjective/Interval History
-
Date of Service: February 05, 2025
Patient was seen and examined. She reported pain in her right buttock and right leg, on and off. No new neurological symptoms.
Objective Data
-
Labs:
Laboratory Results
02/04/25 02/05/25
22:16 05:56
WBC 10.6 8.6
Hgb 12.1 11.7 L
Hct 35.9 L 34.7 L
Plt Count 305 285
Sodium 136 139
Potassium 4.3 5.2 H
Chloride 105 106
Carbon Dioxide 23 25
BUN 20 H 19 H
Creatinine 0.6 0.5 L
Glucose 287 H 263 H
Calcium 9.5 9.3
Total Bilirubin 0.7
AST 34
ALT 43 H
Alkaline Phosphatase 99
Vital Signs:
Vital Signs
Temp Pulse Resp BP Pulse Ox
98.0 F 76 14 132/70 99
02/04/25 21:06 02/05/25 06:30 02/05/25 06:30 02/05/25 06:00 02/05/25 04:30
[2025-02-05] MEDS: NEURONTIN PO ×2 (09:24→15:52)
[2025-02-05] MEDS: VALIUM 5 MG PO ×3 (09:29→20:15)
[2025-02-05] MEDS: DELTASONE 40 MG PO (09:29)
--- NOTE | 2025-02-05 10:59 | CM ---
CM reviewed chart and met with pt bedside in ED. Lives with in split level home, [address], 6 additional steps to bathroom. Independent in ADLs, personal care and ambulation at baseline. No assistive devices.
Confirms prescription coverage.
OBS form reviewed and signed, copy left with pt.
No hx VN or SNF.
PCP: Jennifer Evangelista
Pharmacy: [facility]
Anticipate discharge home, CM will continue to follow for any discharge planning needs.
[2025-02-05] MEDS: TORADOL 10 MG IV ×2 (12:30→20:16)
--- NOTE | 2025-02-05 14:09 | PTCARENOTE ---
Called receiving nursing floor, [address]. Let floor know I was sending ED no nurse delay report
--- NOTE | 2025-02-05 15:08 | PTCARENOTE ---
called [facility] for SCD machine around 1100 for this pt, none in ED
--- NOTE | 2025-02-05 17:37 | PTCARENOTE ---
Patient received to room 435-2 , awake alert and oriented. C/o pain in her right leg from hip to toes. Minimal relief with current pain med regimen. Hospitalist notified. Oriented to room , at bedside . Call agustin in reach.
[2025-02-05] MEDS: DILAUDID 1 MG IV (18:01)
[2025-02-05] MEDS: LOVENOX 40 MG SC (18:02)
[2025-02-05] MEDS: CLARITIN 10 MG PO (18:04)
[2025-02-05] MEDS: NEURONTIN 300 MG PO (20:15)
[2025-02-05 21:47] LABS: Blood Urea Nitrogen 20 mg/dl (7-17); Calcium 9.2 mg/dl (8.4-10.2); Carbon Dioxide 26 mmol/L (22-30); Chloride 102 mmol/L (98-107); Estimated Creatinine Clearance > 125 ml/min; Glucose 333 mg/dl (70-99); Potassium 4.9 mmol/L (3.5-5.1); Sodium 133 mmol/L (135-145); eGFR > 60.00
--- NOTE | 2025-02-05 22:29 | CON.ORTHO ---
Consultation
-
Date/Time Consultation Requested: [id number] 08:43
Date/Time Consultation Performed: [id number] 12:05
Requesting Provider: Isauro Petersen
Performing Provider: Flex Johnson MD
Reason for Consultation: right lower extremity pain
Consultation - Orthopedics
History
Ms Silvestre is a 54y F with PMH significant for Churg-Maria E disease, psoriasis / psoriatic arthritis and metastatic papillary thyroid cancer who presents to ED complaining of intractable right lower extremity pain. The pain starts in her
buttocks and shoots down the posterior aspect of her right lower extremity. She denies any traumatic etiology to her symptoms. She recently underwent thyroid surgery and awoke in intractable right lower extremity and back pain, but she insists this
new onset pain feels different. She was recently seen in our office by Trinh Sarabia PA-C, and was given steroids and a lumber spine MRI was ordered for RLE radiculopathy. That study is still pending. She states she also restarted her Taltz
medication yesterday, and this did coincide with the onset of her symptoms. SHe states her pain is worse with palpation of her buttocks and is exacerbated by movement.
Allergies / Home Medications
Allergy/AdvReac Type Severity Reaction Status Date / Time
Sulfa (Sulfonamide Allergy Intermediate Rash, hives Verified 02/04/25 22:08
Antibiotics)
latex Allergy trouble Verified 02/04/25 22:08
breathing
morphine Allergy Unknown Verified 02/04/25 22:08
oxycodone (From Roxicodone) Allergy Unknown Verified 02/04/25 22:08
cherries Allergy eyes & Uncoded 02/04/25 22:08
throat
swells,
skin itches
enironmental Allergy eyes & Uncoded 02/04/25 22:08
throat
swells,
skin itches
peaches Allergy eyes & Uncoded 02/04/25 22:08
throat
swells,
skin itches
�Medication �Instructions �Recorded
albuterol sulfate 90 mcg/actuation 2 puff inhalation R Q4HPRN PRN sob 09/30/23
aerosol inhaler
cholecalciferol (vitamin D3) 50 50 mcg PO QPM Supplement 09/30/23
mcg (2,000 unit) tablet
fexofenadine 180 mg tablet 180 mg PO QPM Allergies 09/30/23
ixekizumab 80 mg/mL subcutaneous 80 mg SC Q3W IMMUNILOGIC CONDITION 09/30/23
auto-injector (Taltz Autoinjector)
gabapentin 300 mg capsule 300 mg PO TID 02/05/25
levothyroxine 112 mcg tablet 112 mcg PO DAILY 02/05/25
metformin 500 mg tablet,extended 1,000 mg PO BID 02/05/25
release 24 hr
Vital Signs / Lab Results
Temp Pulse Resp BP Pulse Ox
97.6 F 63 18 163/84 96
02/05/25 16:26 02/05/25 16:26 02/05/25 16:26 02/05/25 16:26 02/05/25 16:26
02/05/25 05:56
02/05/25 21:24
PE:
Alert and oriented x3, no apparent distress
TTP right buttocks, lateral hip
Pain with ROM of hip and knee, pain with log roll
NVI distally
5/5 ankle dorsi/plantar flexion, knee flexion/extension
Palpable DP/PT pulses with brisk capillary refill
Pain with hip flexion and adduction
XR pelvis: mild bilateral hip osteoarthritis, no fractures or dislocations
XR lumbar spine: multilevel degenerative changes
Assessment / Plan
Ms Silvestre is a 54 year old female with right lower extremity radiculopathy and possible piriformis syndrome
-IN order to exclude compression of her lumbar nerve roots, a lumbar spine MRI should be obtained. In order to treat piriformis syndrome, I recommend physical therapy and symptomatic relief with anti-inflammatories, and a muscle relaxer will be
added to her pain control regimine. If lumbar spine pathology is discovered then the appropriate consultaton to spine surgery should be placed. Piriformis syndrome is able to be treated as an outpatinet basis. She may follow up in my office if no
lumbar pathology is discovered.
[2025-02-05] MEDS: TYLENOL PO (23:42)
[2025-02-06] MEDS: DILAUDID 1 MG IV ×5 (03:36→21:12)
[2025-02-06] MEDS: ZANAFLEX 2 MG PO (03:37)
[2025-02-06] MEDS: SYNTHROID 112 MCG PO (03:37)
[2025-02-06] MEDS: TYLENOL 1000 MG PO ×3 (07:24→22:31)
[2025-02-06] MEDS: NEURONTIN 300 MG PO (07:24)
[2025-02-06 07:25] VITALS: BP 154/73
[2025-02-06 07:34] LABS: Hematocrit 36.1 % (37.0-47.0); Hemoglobin 12.4 g/dL (12.0-16.0); Mean Corp Hgb Conc. 34.3 g/dL (33.0-37.0); Mean Corpuscular Volume 88.3 fL (81.0-99.0); Platelet Count 239 10^3/uL (130-400); Red Cell Dist. Width 14.5 % (11.5-14.5)
[2025-02-06 08:17] LABS: ALT (SGPT) 54 U/L (0-35); AST (SGOT) 41 U/L (14-36); Albumin 4.6 g/dl (3.5-5.0); Alkaline Phosphatase 90 U/L (38-126); Blood Urea Nitrogen 18 mg/dl (7-17); Calcium 9.7 mg/dl (8.4-10.2); Carbon Dioxide 24 mmol/L (22-30); Chloride 107 mmol/L (98-107); Estimated Creatinine Clearance > 125 ml/min; Glucose 166 mg/dl (70-99); Potassium 4.3 mmol/L (3.5-5.1); Sodium 139 mmol/L (135-145); Total Protein 7.8 g/dl (6.3-8.2); eGFR > 60.00
--- NOTE | 2025-02-06 10:12 | W.PN.HOSP.TC ---
Today's Communication/Plan
-
MRI L-Spine shows stenosis regions which can very well explain patient's symptoms
I consulted Dr. Puente, will start IV Decadron, Dr. Puente will see the patient tomorrow -- no need for urgent surgery
Neurological checks
Adjust pain medications as below
Assessment / Plan
Assessment / Plan
Physical Exam
General: In distress due to pain
HEENT: Moist mucous membranes
Respiratory: Clear to Auscultation Bilaterally
Cardiac: S1/S2 and Regular Rhythm
GI: Soft, Non Tender, Non Distended and Normal Bowel Sounds
Musculoskeletal: No Cyanosis, No Edema. Severe pain in right buttocks and right lower extremity with standing/sitting
Skin: Other (Scattered psoriatic skin changes / plaques with small areas over extremities and larger patches over the lumbar spine / midline.)
Neuro: AAO x 3. Strength in RLE limited due to pain.
Assessment/Plan
54y F with H significant for Churg-Maria E disease, psoriasis / psoriatic arthritis and metastatic papillary thyroid cancer who presented to [facility] ED complaining of RLE radicular pain. Patient stated that she underwent thyroidectomy in November 2024.
Following that surgery, she noted RLE buttock pain and tenderness, radiating down her right lower extremity. This has persisted / progressed since that time. She had taken steroid courses (1 week then 2 weeks) without improvement. She had taken
gabapentin and had dose increased without improvement. She denied any fall, injury, trauma. No pain in the low back / mid back / etc.
Pain is located in the R buttocks and extends down the back of the R leg to the right foot. Pain is worse with standing / walking and sitting.
Patient was seen by outpatient [facility] and an MRI was ordered - this is scheduled for early February 2025.
Patient's became a whole lot worse, therefore she presented to the emergency room.
Patient notes that she took 'starter dose' of Taltz on 02/04/25 (on injection into each thigh). It was about an hour later that increased pain started.
She was on Taltz previously with no issues - but has been off of it now for about one year.
She has no pain in the anterior thigh / at injection site.
No numbness of the RLE. No bowel / bladder incontinence.
On presentation to hospital: Right buttocks severe pain and tenderness, going down to right foot, worse with sitting, standing (inability to bear weight), also numbness in parts of right leg and right later 2 toes of right foot
Lumbosacral Stenosis on MRI Imaging
- Pain control, muscle relaxants (prn Valium), supportive care -- titrate pain medications as needed
- No PT/OT for now until MRI completed (patient's outpatient ortho recommended against PT/OT until MRI is completed)
- MRI L-spine and MRI Pelvis (to look for any pelvic/right buttock lesions) pending
- Ortho consulted, pain management, PT/OT, follow-up on MRI
- MRI showed lumbosacral stenosis which can certainly explained patient's symptoms
- I consulted orthopedics Dr. Jv Puente, I also spoke to Dr. Puente over the phone on 02/06/25, and he recommended IR consult for JAY and IV Decadron 10 mg Q8H; he will see the patient tomorrow, no
urgent/emergency surgery needed
- Change Toradol to 10 mg Q6H scheduled
- Increase Gabapentin dose - we can go up to 400 mg 4 times daily and can titrate it up even further, sedation is rate limiting factor
- Another option would be to start Duloxetine 30 mg with a goal of titrating up to 60 mg
- +/- Lidocaine Patch
- Neurological checks of bilateral lower extremities Q4H
Psoriasis / Psoriatic Arthritis
- Recent flare of skin changes / symptoms.
- Just restarted Taltz after being off of this for a year.
- Follow for response / improvement.
- Follow-up with Rheum as an outpatient.
Metastatic Papillary Thyroid Cancer
Post-Surgical Hypothyroidism
- Diagnosed after excision of granulomatous lung lesion (MPA) in September 2024 included a small area of thyroid cancer.
- Subsequently underwent thyroidectomy in November 2024
- Continue T4 supplementation.
- Follow-up with Oncology as an outpatient.
MPA / Churg-Maria E
Asthma
- Patient reported Niko Sanderson was diagnosed in 2009 by a [place] [employer], was having infiltrate on CT Chest imaging, biopsy showed Niko Sanderson, had been on steroids and other immunosuppresants, after repeated
treatment and repeat flare-up, went into remission 2013 to 2023, but then returned in 2023, when, due to the fact that infiltrate was not responsive to medications/immunosuppressants, she needed lung lobectomy, after which
tyroid cancer was found in the lung lesion from lobectomy, she then had thyroid surgery to take out nodule, pain started immediately after her thyroid cancer surgery in November 2024
- She has had many, many CT Scans since 2009 for her diagnosis
- I spoke with on-call meter repairer today, and it is unlikely that patient's leg and buttocks pain is caused by vasculitis/rheum condition
- Stable. Continue albuterol PRN.
- Follow-up with [facility], Dr. Bass, as an outpatient.
DM-II
- Stable. Hold PO medication acutely.
- Follow glucose and cover with SSI as needed.
DVT Prophylaxis: SCDs. Lovenox.
Code Status: Full Code
Anticipated Discharge: 24 - 48 hours
Subjective/Interval History
-
Date of Service: February 06, 2025
Patient was seen and examined. She continued to have severe pain in her right buttock and her right lower extremity.
Objective Data
-
Labs:
Laboratory Results
02/06/25
07:09
WBC 4.6 L
Hgb 12.4
Hct 36.1 L
Plt Count 239
Sodium 139
Potassium 4.3
Chloride 107
Carbon Dioxide 24
BUN 18 H
Creatinine 0.5 L
Glucose 166 H
Calcium 9.7
Total Bilirubin 0.7
AST 41 H
ALT 54 H
Alkaline Phosphatase 90
Vital Signs:
Vital Signs
Temp Pulse Resp BP Pulse Ox
98.1 F 70 16 154/73 99
02/06/25 07:25 02/06/25 07:25 02/06/25 07:25 02/06/25 07:25 02/06/25 07:25
I&O
02/05/25 02/06/25 02/07/25
06:59 06:59 06:59
Intake Total 460 / 460
Output Total 350 / 350
Balance 110 / 110
--- NOTE | 2025-02-06 10:24 | CM ---
Chart reviewed. Met with patient bedside. Waiting for results of MRI. Continues on IV pain medications.
Plan: Home with no needs depending on results of MRI.
[2025-02-06 11:27] VITALS: BP 163/82; PULSE 83; O2SAT 97
[2025-02-06] MEDS: VALIUM 5 MG PO (11:41)
[2025-02-06] MEDS: TORADOL 10 MG IV ×2 (14:13→20:18)
[2025-02-06 15:23] VITALS: BP 139/61
[2025-02-06] MEDS: NEURONTIN 400 MG PO ×2 (17:02→22:32)
[2025-02-06] MEDS: CLARITIN 10 MG PO (17:03)
[2025-02-06] MEDS: LOVENOX 40 MG SC (17:03)
[2025-02-06] MEDS: DECADRON 10 MG IV (17:06)
[2025-02-06] MEDS: NEURONTIN PO (17:34)
[2025-02-06 23:16] VITALS: BP 158/88
[2025-02-07] MEDS: TORADOL 10 MG IV ×3 (01:34→12:32)
[2025-02-07] MEDS: DECADRON 10 MG IV ×2 (01:36→09:07)
[2025-02-07] MEDS: SYNTHROID 112 MCG PO (05:10)
[2025-02-07 06:56] LABS: Hematocrit 36.6 % (37.0-47.0); Hemoglobin 12.7 g/dL (12.0-16.0); Mean Corp Hgb Conc. 34.7 g/dL (33.0-37.0); Mean Corpuscular Volume 88.4 fL (81.0-99.0); Platelet Count 257 10^3/uL (130-400); Red Cell Dist. Width 13.9 % (11.5-14.5)
[2025-02-07 07:17] LABS: ALT (SGPT) 75 U/L (0-35); AST (SGOT) 41 U/L (14-36); Albumin 4.6 g/dl (3.5-5.0); Alkaline Phosphatase 104 U/L (38-126); Blood Urea Nitrogen 21 mg/dl (7-17); Calcium 9.6 mg/dl (8.4-10.2); Carbon Dioxide 25 mmol/L (22-30); Chloride 105 mmol/L (98-107); Estimated Creatinine Clearance > 125 ml/min; Glucose 284 mg/dl (70-99); Potassium 4.6 mmol/L (3.5-5.1); Sodium 138 mmol/L (135-145); Total Protein 7.7 g/dl (6.3-8.2); eGFR > 60.00
[2025-02-07 07:25] VITALS: BP 174/87
--- NOTE | 2025-02-07 07:55 | CON.MD ---
Consultation - Medical
-
consult dicated
Right L4-5, L5-S1 stenosis
If JAY not helpful, will consider decompression next tuesday
[2025-02-07] MEDS: NEURONTIN 400 MG PO ×3 (08:18→21:57)
[2025-02-07] MEDS: TYLENOL 1000 MG PO ×2 (08:18→21:57)
[2025-02-07] MEDS: TYLENOL PO (08:19)
[2025-02-07] MEDS: ZANAFLEX PO (08:34)
[2025-02-07] MEDS: ZANAFLEX 2 MG PO (08:37)
[2025-02-07 08:40] LABS: INR 0.95; PT 13.2 Sec (11.4-14.6)
--- NOTE | 2025-02-07 10:45 | W.PN.HOSP.TC ---
Today's Communication/Plan
-
JAY with IR today
Transitioned pain meds to oral
If pain is better and stays at an acceptable level tomorrow, then will discharge patient -- patient is in agreement with this plan
Assessment / Plan
Assessment / Plan
Physical Exam
General: Not in acute distress
HEENT: Moist mucous membranes
Respiratory: Clear to Auscultation Bilaterally
Cardiac: S1/S2 and Regular Rhythm
GI: Soft, Non Tender, Non Distended and Normal Bowel Sounds
Musculoskeletal: No Cyanosis, No Edema. Pain IMPROVED in right buttocks and right lower extremity with standing/sitting
Skin: Other (Scattered psoriatic skin changes / plaques with small areas over extremities and larger patches over the lumbar spine / midline.)
Neuro: AAO x 3. Strength in RLE limited due to pain.
Assessment/Plan
54y F with [facility] significant for Churg-Maria E disease, psoriasis / psoriatic arthritis and metastatic papillary thyroid cancer who presented to [facility] ED complaining of RLE radicular pain. Patient stated that she underwent thyroidectomy in November 2024.
Following that surgery, she noted RLE buttock pain and tenderness, radiating down her right lower extremity. This has persisted / progressed since that time. She had taken steroid courses (1 week then 2 weeks) without improvement. She had taken
gabapentin and had dose increased without improvement. She denied any fall, injury, trauma. No pain in the low back / mid back / etc.
Pain is located in the R buttocks and extends down the back of the R leg to the right foot. Pain is worse with standing / walking and sitting.
Patient was seen by outpatient [facility] and an MRI was ordered - this is scheduled for early February 2025.
Patient's became a whole lot worse, therefore she presented to the emergency room.
Patient notes that she took 'starter dose' of Taltz on 02/04/25 (on injection into each thigh). It was about an hour later that increased pain started.
She was on Taltz previously with no issues - but has been off of it now for about one year.
She has no pain in the anterior thigh / at injection site.
No numbness of the RLE. No bowel / bladder incontinence.
On presentation to hospital: Right buttocks severe pain and tenderness, going down to right foot, worse with sitting, standing (inability to bear weight), also numbness in parts of right leg and right later 2 toes of right foot
Lumbosacral Stenosis on MRI Imaging
- Pain control, muscle relaxants (prn Valium), supportive care -- titrate pain medications as needed
- No PT/OT for now until MRI completed (patient's outpatient ortho recommended against PT/OT until MRI is completed)
- MRI L-spine and MRI Pelvis (to look for any pelvic/right buttock lesions) pending
- Ortho consulted, pain management, PT/OT, follow-up on MRI
- MRI showed lumbosacral stenosis which can certainly explained patient's symptoms
- I consulted orthopedics Dr. Jv Puente, I also spoke to Dr. Puente over the phone on 02/06/25, and he recommended IR consult for JAY (for 02/07/25) and IV Decadron 10 mg Q8H (3 doses given); no
urgent/emergency surgery needed
- Steroids going forward: stopped IV Decadron today, starting 02/08/25, started Prednisone 40 mg x3 days, 30 mg x3 days, 20 mg x3 days, 10 mg x3 days
- In an effort to facilitate discharge planning, stopped IV Toradol and also IV Dilaudid, and replaced with Ibuprofen 600 mg PO QID and PO Dilaudid 2 mg to 4 mg PO QID prn severe pain
- Increased Gabapentin dose - we can go up to 400 mg 4 times daily and can titrate it up even further, sedation is rate limiting factor
- Scheduled Tylenol can be increased if needed to 1000 mg PO QID
- Another option would be to start Duloxetine 30 mg with a goal of titrating up to 60 mg
- +/- Lidocaine Patch
- Neurological checks of bilateral lower extremities Q4H
- Will need naloxone (Narcan 4 mg intranasal prn respiratory depression) since patient is also on prn Valium
- Rolling Walker on discharge (script has been provided)
Psoriasis / Psoriatic Arthritis
- Recent flare of skin changes / symptoms.
- Just restarted Taltz after being off of this for a year.
- Follow for response / improvement.
- Follow-up with Rheum as an outpatient.
Metastatic Papillary Thyroid Cancer
Post-Surgical Hypothyroidism
- Diagnosed after excision of granulomatous lung lesion (MPA) in September 2024 included a small area of thyroid cancer.
- Subsequently underwent thyroidectomy in November 2024
- Continue T4 supplementation.
- Follow-up with Oncology as an outpatient.
MPA / Churg-Maria E
Asthma
- Patient reported Niko Sanderson was diagnosed in 2009 by a [place] [employer], was having infiltrate on CT Chest imaging, biopsy showed Niko Sanderson, had been on steroids and other immunosuppresants, after repeated
treatment and repeat flare-up, went into remission 2013 to 2023, but then returned in 2023, when, due to the fact that infiltrate was not responsive to medications/immunosuppressants, she needed lung lobectomy, after which
tyroid cancer was found in the lung lesion from lobectomy, she then had thyroid surgery to take out nodule, pain started immediately after her thyroid cancer surgery in November 2024
- She has had many, many CT Scans since 2009 for her diagnosis
- I spoke with on-call ham smoker today, and it is unlikely that patient's leg and buttocks pain is caused by vasculitis/rheum condition
- Stable. Continue albuterol PRN.
- Follow-up with [place] [facility], Dr. Bass, as an outpatient.
DM-II
- Stable. Hold PO medication acutely.
- Follow glucose and cover with SSI as needed.
- Metformin for steroid-induced hypoglycemia added since patient says she is allergic to Insulin, expected that since transitioning to PO steroids tomorrow, glucose should go down
DVT Prophylaxis: SCDs. Lovenox.
Code Status: Full Code
Anticipated Discharge: Within 24 hours
Subjective/Interval History
-
Date of Service: February 07, 2025
Patient was seen and examined. She reported her pain is better controlled today.
Objective Data
-
Labs:
Laboratory Results
02/07/25 02/07/25
06:25 07:59
WBC 5.6
Hgb 12.7
Hct 36.6 L
Plt Count 257
PT 13.2
INR 0.95
Sodium 138
Potassium 4.6
Chloride 105
Carbon Dioxide 25
BUN 21 H
Creatinine 0.5 L
Glucose 284 H
Calcium 9.6
Total Bilirubin 0.6
AST 41 H
ALT 75 H
Alkaline Phosphatase 104
Vital Signs:
Vital Signs
Temp Pulse Resp BP Pulse Ox
98.1 F 81 14 174/87 97
02/07/25 07:25 02/07/25 07:25 02/07/25 07:25 02/07/25 07:25 02/07/25 07:25
I&O
02/06/25 02/07/25 02/08/25
06:59 06:59 06:59
Intake Total 460 / 460 520 / 520
Output Total 350 / 350 700 / 700
Balance 110 / 110 -180 / -180
[2025-02-07 12:07] LABS: Glucose - Point of Care 412 mg/dl (70-99)
[2025-02-07 12:09] LABS: Glucose - Point of Care 352 mg/dl (70-99)
[2025-02-07] MEDS: MIRALAX 17 GRAMS PO (12:16)
--- NOTE | 2025-02-07 12:20 | PTCARENOTE ---
02/07- Patient refuses insulin stating she has 'a reaction' to it. Current [id number]. Her description of the reaction was 'I couldn't walk. I was so weak my legs just kept giving out, and I was dizzy.' This also occurred after surgery on a
previous hospitalization. Educated patient on importance of insulin, side effects of insulin and hyperglycemia. She verbalized understanding. But she states 352 is 'normal' for her on steroids. The decadron has been D/Mason, and she's wondering
about resuming her metformin since her renal labs are her baseline. She also states, 'I know what high feels like on my body. I am not feeling high at all right now.' Advised we don't want to wait for her to get to that point, but she still
refuses the insulin. Notified Diabetes MANAGER CREDIT RISK and Physician.
[2025-02-07] MEDS: DILAUDID 1 MG IV (12:29)
--- NOTE | 2025-02-07 12:51 | PN.DE.MGMTRT ---
Insulin Management
- -
01/12/2025: Diabetes Management Consult
54 year old female with PMH significant for Churg-Maria E disease, psoriasis / psoriatic arthritis and metastatic papillary thyroid cancer who presented to [facility] ED complaining of RLE radicular pain. Patient stated that she underwent thyroidectomy in
November 2024. Following that surgery, she noted RLE buttock pain and tenderness, radiating down her right lower extremity. This has persisted / progressed since that time. She had taken steroid courses (1 week then 2 weeks) without improvement. She
had taken gabapentin and had dose increased without improvement. She denied any fall, injury, trauma.
On presentation to hospital: Right buttocks severe pain and tenderness, going down to right foot, worse with sitting, standing (inability to bear weight), also numbness in parts of right leg and right later 2 toes of right foot. Lumbosacral Stenosis
on MRI Imaging
Pt was started on IV steroids contributing to Hyperglycemia. No A1C on record, Cr 0.5, eGFR >60
Pt awake, alert, sitting up in chair, at bedside, able to discuss diabetes hx.
Noted for ongoing hyperglycemia. premeal glucose 352-412, FBG WAS 284 V.
pt is adamant that she is not diabetic and that her glucose escalation is due to steroids. She continues to state that she is allergic to steroids, tho ther description of her sx with what happened in the past does not align with an allergic
reaction.
Will start oral regimen. Metformin 1000mg BID, pt was already taking at home
Prandin 2mg TID- Pt states she is allergic to sulfonylureas.
Update A1C. pT states he has a working glucose monitor at home.
Discussed with Nurse. Will cont to follow
Diabetes History
- -
Type of Diabetes: 2
Pre-Admission Diabetes Regimen
02/07/25
06:
Creatinine 0.5 L
Insulin Pump Settings
IP Diabetes Regimen
02/07/25 02/07/25 02/07/25
06:25 12:04 12:08
Glucose 284 H
POC Glucose 412 H 352 H
Meal type: Breakfast
Meal type: Lunch
Amount consumed: 100%
Amount consumed: 100%
Patient Education
--- NOTE | 2025-02-07 13:25 | CM ---
Chart reviewed. Met with patient at bedside. PT rec outpatient Therapy vs Home care. Pt agrees to home care and express interest in using [facility]. Pt was given choices prior to this selection. [facility] , Roxanne Lantigua, made aware of referral
Plan: Home with [facility]
[2025-02-07 14:16] LABS: Glycohemoglobin (HgbA1c) 6.5 % (4.0-5.6)
--- NOTE | 2025-02-07 14:44 | VNURNOTE ---
Addendum entered by Dulce Lantigua RN 02/07/25 15:44:
Rx for rolling walker on pt's chart. PT to provide at [place]. [place]yenne Lynne and RUY Pierre aware.
Original Note:
Home Health Liaison met with patient and spouse at bedside to discuss [facility] nurse/therapy, visits, schedule and homebound status. Patient is agreeable and understands that visits at home will be 2-3 x per week to assess and teach medical
management.
Patient is aware that [facility] will contact them for start of care in 1-2 days after discharge from . Provided contact number for [facility].
PM [facility] referral completed in [facility] Port.
[2025-02-07 15:15] VITALS: BP 188/75; BP_SYST 74
[2025-02-07] MEDS: GLUCOPHAGE 1000 MG PO (17:09)
[2025-02-07] MEDS: CLARITIN 10 MG PO (17:09)
[2025-02-07] MEDS: MOTRIN 600 MG PO ×2 (17:09→21:57)
[2025-02-07] MEDS: LOVENOX 40 MG SC (17:10)
[2025-02-07] MEDS: PRANDIN 2 MG PO (17:14)
[2025-02-07 17:31] LABS: Glucose - Point of Care 290 mg/dl (70-99)
[2025-02-07] MEDS: DILAUDID 2 MG PO (19:51)
[2025-02-07 21:51] LABS: Glucose - Point of Care 184 mg/dl (70-99)
[2025-02-07 23:35] VITALS: BP 174/76
[2025-02-08] MEDS: SYNTHROID 112 MCG PO (05:07)
[2025-02-08] MEDS: VALIUM 5 MG PO (05:19)
[2025-02-08 07:20] VITALS: BP 169/85
--- NOTE | 2025-02-08 07:43 | PN.DE.MGMTRT ---
Insulin Management
- -
02/08/2025: Diabetes Management follow up
54 year old female with PMH significant for Churg-Maria E disease, psoriasis / psoriatic arthritis and metastatic papillary thyroid cancer who presented to [facility] ED complaining of RLE radicular pain. Patient stated that she underwent thyroidectomy in
November 2024. Following that surgery, she noted RLE buttock pain and tenderness, radiating down her right lower extremity. This has persisted / progressed since that time. She had taken steroid courses (1 week then 2 weeks) without improvement. She
had taken gabapentin and had dose increased without improvement. She denied any fall, injury, trauma.
On presentation to hospital: Right buttocks severe pain and tenderness, going down to right foot, worse with sitting, standing (inability to bear weight), also numbness in parts of right leg and right later 2 toes of right foot. Lumbosacral Stenosis
on MRI Imaging
Pt was started on IV steroids contributing to Hyperglycemia. Steroids have been tapered down to prednisone 40g daily. A1C 6.5%, Cr 0.5, eGFR >60
Pt awake, alert, sitting up in chair, at bedside, able to discuss diabetes hx.
Glucose has improved with tapered dose of steroids. HS glucose was 184, FBG 135 this AM
Will reduce Prandin to 1mg TID. Cont Metformin 1000 mg BID
Pt states he has a working glucose monitor at home.
Discussed with Hospitalist, may further reduce Prandin dose to 0.5mg TID at discharge home.
Pt will need OP F/U with her PCP to adjust diabetes meds. Pt was instructed to monitor glucose and keep a log to take to her PCP visit
Discussed with Nurse. Will cont to follow
Diabetes History
- -
Type of Diabetes: 2 requiring insulin
Pre-Admission Diabetes Regimen
Lab Results
Hemoglobin A1c 6.5 % (4.0-5.6) H 02/07/25 06:25
Insulin Pump Settings
IP Diabetes Regimen
02/07/25 02/07/25 02/07/25
12:04 12:08 17:29
POC Glucose 412 H 352 H 290 H
02/07/25
21:47
POC Glucose 184 H
Meal type: Lunch
Meal type: Breakfast
Amount consumed: 100%
Amount consumed: 100%
Patient Education
[2025-02-08 07:46] LABS: Hematocrit 38.4 % (37.0-47.0); Hemoglobin 13.1 g/dL (12.0-16.0); Mean Corp Hgb Conc. 34.1 g/dL (33.0-37.0); Mean Corpuscular Volume 89.9 fL (81.0-99.0); Platelet Count 274 10^3/uL (130-400); Red Cell Dist. Width 14.2 % (11.5-14.5)
--- NOTE | 2025-02-08 08:02 | W.PN.HOSP.TC ---
Today's Communication/Plan
-
Discharge today
Assessment / Plan
Assessment / Plan
Physical Exam
General: Not in acute distress
HEENT: Moist mucous membranes
Respiratory: Clear to Auscultation Bilaterally
Cardiac: S1/S2 and Regular Rhythm
GI: Soft, Non Tender, Non Distended and Normal Bowel Sounds
Musculoskeletal: No Cyanosis, No Edema. Pain IMPROVED in right buttocks and right lower extremity with standing/sitting
Skin: Other (Scattered psoriatic skin changes / plaques with small areas over extremities and larger patches over the lumbar spine / midline.)
Neuro: AAO x 3. Strength in RLE limited due to pain.
Assessment/Plan
54y F with H significant for Churg-Maria E disease, psoriasis / psoriatic arthritis and metastatic papillary thyroid cancer who presented to [facility] ED complaining of RLE radicular pain. Patient stated that she underwent thyroidectomy in November 2024.
Following that surgery, she noted RLE buttock pain and tenderness, radiating down her right lower extremity. This has persisted / progressed since that time. She had taken steroid courses (1 week then 2 weeks) without improvement. She had taken
gabapentin and had dose increased without improvement. She denied any fall, injury, trauma. No pain in the low back / mid back / etc.
Pain is located in the R buttocks and extends down the back of the R leg to the right foot. Pain is worse with standing / walking and sitting.
Patient was seen by outpatient [facility] and an MRI was ordered - this is scheduled for early February 2025.
Patient's became a whole lot worse, therefore she presented to the emergency room.
Patient notes that she took 'starter dose' of Taltz on 02/04/25 (on injection into each thigh). It was about an hour later that increased pain started.
She was on Taltz previously with no issues - but has been off of it now for about one year.
She has no pain in the anterior thigh / at injection site.
No numbness of the RLE. No bowel / bladder incontinence.
On presentation to hospital: Right buttocks severe pain and tenderness, going down to right foot, worse with sitting, standing (inability to bear weight), also numbness in parts of right leg and right later 2 toes of right foot
Lumbosacral Stenosis on MRI Imaging
L4-5 disc herniation with moderate severe stenosis on the right side
Right-sided L5-S1 stenosis.
- Ortho consulted, pain management, PT/OT, follow-up on MRI
- MRI showed lumbosacral stenosis which can certainly explained patient's symptoms
- I consulted orthopedics Dr. Jv Puente, I also spoke to Dr. Puente over the phone on 02/06/25, and he recommended IR consult for JAY (completed on 02/07/25) and IV Decadron 10 mg Q8H (3 doses
given); no urgent/emergency surgery needed
- Steroids going forward: stopped IV Decadron, but starting 02/08/25, started Prednisone 40 mg x3 days, 30 mg x3 days, 20 mg x3 days, 10 mg x3 days
- Patient received spine JAY with relief on 02/07/25
- Pain controlled on current pain regimen -- so will discharge on current regimen
- In an effort to facilitate discharge planning, stopped IV Toradol and also IV Dilaudid, and replaced with Ibuprofen 600 mg PO QID and PO Dilaudid 2 mg to 4 mg PO QID prn severe pain
- Increased Gabapentin dose - we can go up to 400 mg 4 times daily and can titrate it up even further, sedation is rate limiting factor
- Scheduled Tylenol can be increased if needed to 1000 mg PO QID
- Another option would be to start Duloxetine 30 mg with a goal of titrating up to 60 mg
- +/- Lidocaine Patch
- Neurological checks of bilateral lower extremities Q4H
- Will need naloxone (Narcan 4 mg intranasal prn respiratory depression) since patient is also on prn Valium
- Rolling Walker on discharge (script has been provided)
Psoriasis / Psoriatic Arthritis
- Recent flare of skin changes / symptoms.
- Just restarted Taltz after being off of this for a year.
- Follow for response / improvement.
- Follow-up with Rheum as an outpatient.
Metastatic Papillary Thyroid Cancer
Post-Surgical Hypothyroidism
- Diagnosed after excision of granulomatous lung lesion (MPA) in September 2024 included a small area of thyroid cancer.
- Subsequently underwent thyroidectomy in November 2024
- Continue T4 supplementation.
- Follow-up with Oncology as an outpatient.
- Patient wants to establish care with Endocrinology at [place]
MPA / Churg-Maria E
Asthma
- Patient reported Niko Sanderson was diagnosed in 2009 by a [facility], was having infiltrate on CT Chest imaging, biopsy showed Niko Sanderson, had been on steroids and other immunosuppresants, after repeated
treatment and repeat flare-up, went into remission 2013 to 2023, but then returned in 2023, when, due to the fact that infiltrate was not responsive to medications/immunosuppressants, she needed lung lobectomy, after which
tyroid cancer was found in the lung lesion from lobectomy, she then had thyroid surgery to take out nodule, pain started immediately after her thyroid cancer surgery in November 2024
- She has had many, many CT Scans since 2009 for her diagnosis
- I spoke with on-call nuclear equipment research engineer today, and it is unlikely that patient's leg and buttocks pain is caused by vasculitis/rheum condition
- Stable. Continue albuterol PRN.
- Follow-up with [facility], Dr. Bass, as an outpatient. Patient now wants to establish care locally with [facility] pulmonary [place].
DM-II
- Follow glucose and cover with SSI as needed.
- Metformin for steroid-induced hypoglycemia added since patient says she is allergic to Insulin, expected that since transitioning to PO steroids tomorrow, glucose should go down
- Prandin low dose on discharge
- Patient is aware that her glucose can go down as steroids completed, she is also aware that she may need to stop taking Prandin (and Metformin) next week and needs to have PCP address this early next week. Myself
and Diabetes Nurse Practitioner discussed this extensively with the patient on 02/08/25.
DVT Prophylaxis: SCDs. Lovenox.
Code Status: Full Code
More than 30 minutes spent in discharge including
Final examination of the patient
Summarizing hospital stay
Instructions for continuing care to all relevant caregivers
Preparation of discharge records, prescriptions, and referral forms
Total time spent (in minutes): 48
Anticipated Discharge: Today
Subjective/Interval History
-
Date of Service: February 08, 2025
Patient was seen and examined. She reported her pain is much better than when she came in, she can now sit in the chair without significant pain.
Objective Data
-
Labs:
Laboratory Results
02/08/25
07:33
WBC 8.3
Hgb 13.1
Hct 38.4
Plt Count 274
Sodium Pending
Potassium Pending
Chloride Pending
Carbon Dioxide Pending
BUN Pending
Creatinine Pending
Glucose Pending
Calcium Pending
Total Bilirubin Pending
AST Pending
ALT Pending
Alkaline Phosphatase Pending
Vital Signs:
Vital Signs
Temp Pulse Resp BP Pulse Ox
98.5 F 95 18 174/76 96
02/07/25 23:35 02/07/25 23:35 02/07/25 23:35 02/07/25 23:35 02/08/25 02:11
I&O
02/07/25 02/08/25 02/09/25
06:59 06:59 06:59
Intake Total 520 / 520
Output Total 700 / 700
Balance -180 / -180
[2025-02-08 08:23] LABS: Glucose - Point of Care 137 mg/dl (70-99)
[2025-02-08 08:34] LABS: ALT (SGPT) 67 U/L (0-35); AST (SGOT) 34 U/L (14-36); Albumin 4.5 g/dl (3.5-5.0); Alkaline Phosphatase 91 U/L (38-126); Blood Urea Nitrogen 21 mg/dl (7-17); Calcium 9.8 mg/dl (8.4-10.2); Carbon Dioxide 30 mmol/L (22-30); Chloride 105 mmol/L (98-107); Estimated Creatinine Clearance > 125 ml/min; Glucose 93 mg/dl (70-99); Potassium 4.3 mmol/L (3.5-5.1); Sodium 142 mmol/L (135-145); Total Protein 7.5 g/dl (6.3-8.2); eGFR > 60.00
[2025-02-08] MEDS: DILAUDID 2 MG PO (08:43)
[2025-02-08] MEDS: DELTASONE 40 MG PO (08:43)
[2025-02-08] MEDS: MOTRIN 600 MG PO ×2 (08:44→12:42)
[2025-02-08] MEDS: GLUCOPHAGE 1000 MG PO ×2 (08:45→16:28)
[2025-02-08] MEDS: MIRALAX 17 GRAMS PO (08:45)
[2025-02-08] MEDS: NEURONTIN 400 MG PO ×2 (08:46→16:27)
[2025-02-08] MEDS: TYLENOL 1000 MG PO ×2 (08:46→16:27)
[2025-02-08] MEDS: PRANDIN 1 MG PO ×3 (09:51→16:28)
--- NOTE | 2025-02-08 11:09 | EDCM ---
Addendum entered by Sandra Javed 02/08/25 11:37:
Spoke PT, pt will need to purchase her own walker. Script is written/on chart
Plan: Home with script for walker
Addendum entered by Sandra Javed 02/08/25 11:34:
Previous note is from Industrial Sweeper Cleaner on 4W, no the ED
Original Note:
Reviewed chart. Met with pt and family member at chairside. No change is d/c plan. Needs a walker at home; PT checking if insurance will pay for it or if it will be self pay.
Plan: DC to home with walker
[2025-02-08 11:46] LABS: Glucose - Point of Care 91 mg/dl (70-99)
[2025-02-08 15:30] VITALS: BP 152/93
[2025-02-08 16:09] LABS: Glucose - Point of Care 184 mg/dl (70-99)
--- NOTE | 2025-02-11 10:18 | W.DCSUMMARY ---
Discharge Summary
Discharge Data
Date of Admission: 02/05/25
Date of Discharge: 02/08/25
Total time spent discharging patient (in min): 48
-
Pending Results: No
Hospital Course
54 y/o female with past medical history significant for Churg-Maria E disease (diagnosed in 2009, was in remission from 2013 to 2023), psoriasis/psoriatic arthritis and metastatic papillary thyroid cancer who presented to [facility] emergency department
complaining of severe right buttock and right lower extremity pain. Patient stated that she underwent thyroidectomy in November of this year for thyroid cancer. Following that surgery she noted RLE radicular pain. This has persisted/progressed since
that time. She had taken steroid courses (1 week then 2 weeks) without improvement. Most recently she was on Prednisone for cough. She has been taking Gabapentin, and had her dose increased without improvement. She denied any fall, injury, trauma.
She denied any back pain. Her pain was noted to be a lot worse with attempts at weight bearing and sitting. The pain is still significant when she is lying down. Patient was seen by outpatient Orthopedics and reportedly an MRI L-Spine was ordered
and scheduled fro early February 2025. Patient notes that she took 'starter dose' of Taltz earlier in the evening on 02/04/25 (on injection into each thigh). It was about an hour later that increased pain started. She reported some chronic numbness
in her right 2 lateral toes. She denied any bowel or bladder incontinence. Orthopedics was consulted, and agreed with lumbar spine MRI; they also recommended physical therapy and symptomatic relief with anti-inflammatories, and a muscle relaxer, for
possible Piriformis Syndrome. MRI of patient's pelvis and lumbar spine were ordered. Patient's pain was very severe to the point in which she was very much in distress, therefore she was placed on aggressive pain regimen, which had to be increased.
Patient's lumbar spine MRI showed stenosis which could explain her pain and chronic toe numbness, so the case was discussed with orthopedic spine surgeon Dr. Jv Puente, who was also consulted. After discussion with Dr. Puente, IV steroids and
consultation for Interventional Radiology to do Epidural Spine Injection (JAY), were both ordered. Patient received Epidural Spine Injection. Dr. Puente mentioned that if JAY was not helpful, then decompression could be considered outpatient, for
February 12, 2025. Diabetes Nurse Practitioner was consulted given patient stated she had bad reactions in the past to Insulin in the setting of steroid-induced hyperglycemia, and patient was placed on oral medications to control blood sugar.
Patient reported her pain was much more manageable with the pain regimen consisting of Tylenol, Ibuprofen, Gabapentin, as needed Dilaudid, as needed Valium, and as needed Zanaflex. On the day of discharge, patient was thoroughly advised by myself
and Diabetes Nurse Practitioner that she needs to very closely follow-up (within less than 1 week) with her primary care provider to consider reducing her oral medications for high blood sugar and also her pain medications. She was advised to try to
reduce the frequency of the sedating medications that were prescribed to her, if she can tolerate it. Patient was advised on the side effects of the her prescribed medications. Given that she was having severe uncontrollable pain with her right
lower extremity even when sitting, she needed this aggressive pain regimen, which was also discussed with pharmacist in the hospital who was in agreement. She was doing better and stable for discharge.
Discharge Plan
-
Patient Disposition: Home with Home Care
Discharge Diagnosis/Procedures: On presentation to hospital: Right buttocks severe pain and tenderness, going down to right foot, worse with sitting, standing (inability to bear weight), also numbness in parts of right leg and right later 2 toes of
right foot
Lumbosacral Stenosis on MRI Imaging
L4-5 disc herniation with moderate severe stenosis on the right side
Right-sided L5-S1 stenosis
Psoriasis / Psoriatic Arthritis
Metastatic Papillary Thyroid Cancer
Post-Surgical Hypothyroidism
MPA / Churg-Maria E
Asthma
Diabetes Mellitus?
Steroid induced hyperglycemia

MRI Lumbar Spine with and without contrast (as per radiologist's report):
'IMPRESSION:
L4-5 with moderate to advanced central canal stenosis. Right paracentral disc protrusion. Bilateral lateral recess stenosis, right greater than left. Compression of the proximal descending right L5 nerve root.
L5-S1 mild central canal narrowing with focal right paracentral disc protrusion contributing to right lateral recess stenosis compressing the descending right S1 nerve root. Mild left lateral recess stenosis compressing the left S1 nerve root. Mild
foraminal narrowing.
No abnormal enhancement. No evidence to suggest discitis or osteomyelitis. No compression deformity.'

MRI Pelvis with and without contrast (as per radiologist's report):
'IMPRESSION:
No significant visceral pelvic abnormality.
The gluteal muscle and fascial planes are preserved. No soft tissue mass, collection, or abnormal enhancement. No evidence to suggest abscess formation.
Nonspecific small, relatively symmetric joint effusions.
Incidental 7 mm enhancing focus posterior to the margin of the right L5-S1 facet, nonspecific, possibly capsular reactive/inflammatory nodular thickening.'

Right Hip X-Ray (as per radiologist's report):
'IMPRESSION:
Minimal bilateral hip osteoarthritis. New
Mild right SI joint osteoarthritis. Stable'

Lumbar Spine X-Ray (as per radiologist's report):
'FINDINGS:
Disc spaces: There is moderate disc space narrowing at L4/L5 and L5/S1. There is mild disc space narrowing at the remaining levels..
Vertebral stature: No vertebral compression deformity.
Alignment: Normal.
Facet joints: No significant arthropathy,
SI joints: Unremarkable.
IMPRESSION:
Multilevel degenerative disc disease. Progressed at all levels.'
Condition: Good
Diet: Regular
Activity: As tolerated
Driving Restrictions: No driving
Blood Work: CBC, CMP with your primary care provider's office in 3 to 4 days
Activity Restrictions/Additional Instructions:
As your Prednisone dose decreases, it is likely your glucose values will decrease and therefore you may not need Prandin or Metformin anymore. In fact, you may get low blood sugar with dizziness and other symptoms of low blood sugar, particularly
with Prandin. You really need to discuss this with your primary care provider early next week who can help you decide if you need to stop these medications.
Please read the instructions (lots of pages) that will be provided to you on discharge.
Given significant side effects, including but not limited to severe drowsiness and respiratory depression, do your best to reduce the frequency you take the Diazepam, Gabapentin, Hydromorphone, Tizanidine.
Do not do any activity that would put you (or others around you) at risk for harm, in the case that you were to become drowsy or lose control while doing that activity.
If you develop new symptoms, you or someone near you should call 911 and you should return to the ER right away.
Instructions: Low blood sugar in people with diabetes, Low blood sugar in people without diabetes, Acetaminophen, Diazepam, Gabapentin, Hydromorphone, Ibuprofen, Metformin, Naloxone, Prednisone, Repaglinide, Tizanidine, How to give naloxone, High
blood sugar in adults - ED (DC), Low blood sugar in adults - ED (DC), How to give naloxone - ED (DC), Ibuprofen
Referrals:
Tracey Fan MD [Active, Pulmonary Medicine] - in three to four weeks
Referral Note: History of Churg Maria E in the lungs. Patient would like to re-establish care with Pulmonary at [facility] pulmonary office, with Dr. Fan.
Suzanna Mcdowell MD [Consulting Staff, Endocrinology] - in two to three weeks
Referral Note: Patient would like to establish with Endocrinology at [place]. Has recent history of thyroid cancer.
Jv Puente MD [Active, Orthopedics] - in less than 1 week
Referral Note: Hospitalization Follow-Up. Might need right-sided L4-5, L5-S1
decompression.
UNKNOWN - PT DOES,NOT KNOW [Family Provider]
Additional Discharge Medication Instructions: High Strength scheduled Tylenol, as needed Diazepam, as needed Hydromorphone, scheduled Ibuprofen, and as needed Tizanidine are new pain medications given your severe, excruciating pains. Gabapentin has
been increased from 300 three to times a day to 300 mg 4 times a day -- you can take your same Gabapentin, but with one additional dose (to make it 300 mg 4 times per day)
Naloxone has been prescribed in case you get opioid overdose.
Prandin 0.5 mg TID is a new medication.
Polyethylene Glycol and Senokot-S are new medications.
Prednisone is a new medication (it's a tapering medication) for your stenosis in your spine.
Early next week, as we discussed, your primary care provider needs to review your medication list (in the discharge instructions here) and decide whether or not to discontinue or adjust some of your medications, including but not limited to
Repaglinide (Prandin) and Metformin.
Prescriptions:
New
naloxone [Narcan] 4 mg/actuation spray,non-aerosol
4 mg intranasal Q2M PRN (Reason: opioid overdose) Qty: 2 0RF
prednisone 10 mg tablet
10 mg PO DIRECTED Qty: 26 0RF
Rx Instructions:
Starting 02/09/25: 40 mg/day x2 days; 30 mg/day x3 days; 20 mg/day x3 days; 10 mg/day x3 days
hydromorphone 2 mg Tablet
2 mg PO Q6HPRN PRN (Reason: severe pain) 6 Days Qty: 18 0RF
polyethylene glycol 3350 17 gram Powder In Packet
17 g PO DAILY Qty: 30 0RF
sennosides-docusate sodium [Senokot-S] 8.6-50 mg tablet
1 tab-cap PO HS Qty: 30 0RF
ibuprofen 600 mg Tablet
600 mg PO QID 5 Days Qty: 20 0RF
repaglinide 0.5 mg tablet
0.5 mg PO TID 5 Days Qty: 15 0RF
acetaminophen [Tylenol Extra Strength] 500 mg Tablet
1,000 mg PO TID 5 Days Qty: 30 0RF
diazepam 5 mg Tablet
5 mg PO TIDPRN PRN (Reason: Muscle pain / spasm) 5 Days Qty: 10 0RF
tizanidine 2 mg Tablet
2 mg PO Q6HPRN PRN (Reason: pain control) 5 Days Qty: 14 0RF
Continued
fexofenadine 180 mg Tablet
180 mg PO QPM
albuterol sulfate 90 mcg/actuation Hfa Aerosol Inhaler
2 puff INHALATION R Q4HPRN PRN (Reason: sob)
cholecalciferol (vitamin D3) 50 mcg (2,000 unit) Tablet
50 mcg PO QPM
Taltz Autoinjector 80 mg/mL Auto-Injector
80 mg SC Q3W
metformin 500 mg tablet extended release 24 hr
1,000 mg PO BID
levothyroxine 112 mcg tablet
112 mcg PO DAILY
Changed
gabapentin 300 mg capsule
300 mg PO QID Qty: 0 0RF
Discharge Orders:
Discharge Patient (As Directed); Ordered 02/08/25
Ordered By: Isauro Petersen
Discharge Date and Time
Discharge Date/Time: 02/08/25 17:56
Print Language: [id number]
== END 2025-02-08 17:56 | disposition home health service (06) | DRG 552 ==
LOC: 4 WEST ACU 16:02
PROVIDERS: Radiology Vascular & Interventional Radiology; ADMITTING PHYSICIAN Hospitalist; ATTENDING PHYSICIAN Hospitalist; CONSULT PHYSICIAN Orthopaedic Surgery Orthopaedic Surgery of the Spine; CONSULT PHYSICIAN Student in an Organized Health Care Education/Training Program; EMERGENCY PHYSICIAN Emergency Medicine
PROC: 3E0R3BZ Introduction of Anesthetic Agent into Spinal Canal, Percutaneous Approach (ICD-10-PCS; 2025-02-07)
PROC: 3E0R33Z Introduction of Anti-inflammatory into Spinal Canal, Percutaneous Approach (ICD-10-PCS; 2025-02-07)
DX: M51.16 Intervertebral disc disorders with radiculopathy, lumbar region (principal); C78.00 Secondary malignant neoplasm of unspecified lung; M30.1 Polyarteritis with lung involvement [Churg-Strauss]; N39.0 Urinary tract infection, site not specified; M79.651 Pain in right thigh; L40.50 Arthropathic psoriasis, unspecified; C73 Malignant neoplasm of thyroid gland; E11.65 Type 2 diabetes mellitus with hyperglycemia; J45.909 Unspecified asthma, uncomplicated; E89.0 Postprocedural hypothyroidism; G57.01 Lesion of sciatic nerve, right lower limb; M48.061 Spinal stenosis, lumbar region without neurogenic claudication; M48.07 Spinal stenosis, lumbosacral region; M51.27 Other intervertebral disc displacement, lumbosacral region; N80.9 Endometriosis, unspecified; Z79.52 Long term (current) use of systemic steroids; Z79.84 Long term (current) use of oral hypoglycemic drugs; Z86.711 Personal history of pulmonary embolism; Z98.1 Arthrodesis status; Z87.891 Personal history of nicotine dependence; Z90.2 Acquired absence of lung [part of]; Z90.710 Acquired absence of both cervix and uterus; Z90.722 Acquired absence of ovaries, bilateral; Z91.040 Latex allergy status; Z88.5 Allergy status to narcotic agent; Z88.2 Allergy status to sulfonamides; Z91.018 Allergy to other foods; Z79.890 Hormone replacement therapy
CPT/HCPCS: 62323; 72110; 72158; 72197; 73502; 80048; 80053; 82550; 82962; 83036; 85025; 85027; 85610; 97116; 97162; 97530; A9575

== ENCOUNTER → 2025-03-15 14:36 | Outpatient (REF) | payer OTHER, SELFPAY | LOC: HWRAD 14:36 | PROVIDERS: ATTENDING PHYSICIAN Nurse Practitioner Family; FAMILY PHYSICIAN Physician Assistant Medical | DX: J45.909 Unspecified asthma, uncomplicated (principal) | CPT/HCPCS: 71250 ==